=== PATIENT | male | born 1975 | race Caucasian/White ===

== ENCOUNTER 2017-03-26 11:23 | Emergency (ER) | payer OTHER ==
[~2017-03-26] VITALS: Ht 175.3 cm; Wt 70.0 kg
[~2017-03-26 11:23] MED LIST: PANT40TA3 PO; ZOF8 PO
[2017-03-26 11:26] VITALS: Ht 175.3 cm; Wt 70.0 kg
[2017-03-26] MEDS ORDERED: morphine 4 MG/ML VIAL IV STA (11:37)
[2017-03-26] MEDS ORDERED: SOD CHLORIDE 0.9% 1,000 ML IV STA (11:37)
[2017-03-26 11:55] LABS: ADD SCAN DIFF NO
[2017-03-26] MEDS ORDERED: METOCLOPRAMIDE 10 MG INJ IV ONE (12:00)
[2017-03-26] MEDS ORDERED: LORAZEPAM 2 MG INJ IV ONE (12:00)
[2017-03-26 12:01] LABS: BASOPHIL # 0.1 10^3/ul (0.0-0.1); BASOPHILS % 0.4 % (0.0-2.0); EOSINOPHILS % 0.1 % (0.0-7.0); HEMATOCRIT 45.8 % (42.0-52.0); HEMOGLOBIN 15.9 g/dl (14.0-18.0); LYMPHOCYTES # 1.3 10^3/ul (0.8-2.9); LYMPHOCYTES % 7.8 % (15.0-51.0); MEAN CORPUSCULAR HEMOGLOBIN 32.1 pg (29.0-33.0); MEAN CORPUSCULAR HGB CONC 34.7 g/dl (32.0-37.0); MEAN CORPUSCULAR VOLUME 92.3 fl (82.0-101.0); MONOCYTE # 0.8 10^3/ul (0.3-0.9); MONOCYTES % 4.8 % (0.0-11.0); NEUTROPHIL # 13.9 10^3/ul (1.6-7.5); NEUTROPHILS % 86.1 % (39.0-77.0); PLATELET COUNT 265 10^3/UL (140-415); RED BLOOD COUNT 4.96 10^6/ul (4.70-6.10); RED CELL DISTRIBUTION WIDTH 13.4 % (11.5-14.5); WHITE BLOOD COUNT 16.1 10^3/ul (4.8-10.8)
[2017-03-26 12:11] LABS: ALBUMIN 5.2 g/dl (3.3-4.9); POTASSIUM 3.6 mmol/L (3.5-5.1)
[2017-03-26 12:13] LABS: CREATININE 0.93 mg/dl (0.61-1.24)
[2017-03-26 12:14] LABS: ALBUMIN/GLOBULIN RATIO 1.48; BILIRUBIN,INDIRECT 1.1 mg/dl (0-1.1); BILIRUBIN,TOTAL 1.1 mg/dl (0.2-1.3); TOTAL PROTEIN 8.7 g/dl (6.1-8.1)
[2017-03-26 12:15] LABS: CALCIUM 10.1 mg/dl (8.4-10.2)
[2017-03-26] MEDS ORDERED: SUCR1TAB56 PO (12:17)
[2017-03-26] MEDS ORDERED: HYDR2TAB3 PO (12:17)
[2017-03-26] MEDS ORDERED: PANT40TA4 PO (12:17)
[2017-03-26] MEDS ORDERED: HYOS0.1212 SL (12:18)
[2017-03-26] MEDS ORDERED: HYDROmorphONE 1 MG/ML SYG IV STA (12:24)
[2017-03-26] MEDS ORDERED: ONDA4TAB14 PO (13:18)
--- NOTE | 2017-03-26 13:18 | ERD ---
ER Documentation Chief Complaint Date/Time DATE: 03/26/17 TIME: 13:15 Chief Complaint C/O MID CHEST PAIN SINCE TODAY HPI This is a 41-year-old male who presents to the emergency room for evaluation of abdominal pain and cramping. This patient does state he has a history of gastritis and states that he is taking Dilaudid and Zofran for his pain. He states that it is not working and he came to the emergency room for evaluation. He denies any blood in his stool, and states that his pain is centralized in the mid abdomen with no radiation described as a sharp pain. Patient states that he has had pain similar in the past and it was his gastritis which is relieved with fluids and intravenous Dilaudid ROS All systems reviewed and are negative except as per history of present illness. Medications Home Meds Reported Medications Hyoscyamine Sulfate* (Hyoscyamine Sulfate*) 0.125 Mg Tab.subl, 0.125 MG SL Q4H Y for PRN, TAB 03/26/17 Hydromorphone Hcl* (Hydromorphone Hcl*) 2 Mg Tablet, 2 MG PO Q6 Y for PAIN, TAB 03/26/17 Pantoprazole* (Pantoprazole*) 40 Mg Tablet.dr, 40 MG PO AC BREAKFAST, TAB 03/26/17 Sucralfate* (Carafate*) 1 Gm Tab, 1 GM PO AC MEALS AND BEDTIME, TAB 03/26/17 Discontinued Reported Medications Ondansetron Hcl* (Zofran*) 8 Mg Tab, 8 MG PO Q6 Y 01/19/12 Discontinued Scripts Pantoprazole* (Protonix*) 40 Mg Tablet.dr, 40 MG PO DAILY, #30 TAB Prov:LO HUI MD 01/15/16 Allergies Allergies: Coded Allergies: No Known Allergy (Unverified , 01/22/12) PMhx/Soc History of Surgery: Yes Anesthesia Reaction: No Hx Neurological Disorder: No Hx Respiratory Disorders: No Hx Cardiac Disorders: No Hx Psychiatric Problems: No Hx Miscellaneous Medical Probl: Yes (IBS,GASTRITIS) Hx Alcohol Use: No Hx Substance Use: No Hx Tobacco Use: No Smoking Status: Never smoker Physical Exam Vitals Vital Signs Date Time Temp Pulse Resp B/P Pulse Ox O2 Delivery O2 Flow Rate FiO2 03/26/17 11:55 83 17 129/95 100 Room Air 03/26/17 11:26 97.9 55 25 137/75 100 Physical Exam INITIAL VITAL SIGNS: Reviewed by me GENERAL: The patient is well developed, appears uncomfortable HEENT: Dry mucous membranes, pupils equal, round, and reactive to light. EOMI. There is no scleral icterus. NECK: C-spine is soft and supple, there is no meningismus. There is no cervical lymphadenopathy. LUNGS: Clear to auscultation bilaterally. There are no rales, wheezes or rhonchi. HEART: Regular rate and rhythm, no murmurs, clicks, rubs or gallops. ABDOMEN: Epigastric tenderness to palpation, otherwise soft, non-tender, non- distended. There are bowel sounds in all four quadrants. No rebound or guarding. EXTREMITIES: There is no peripheral cyanosis or edema. No focal swelling or erythema. NEUROLOGICAL: The patient moves all four extremities with 5/5 strength. Cranial nerves II - XII are intact. Normal gait. Alert and oriented SKIN: There is no apparent rash or petechiae. HEME/LYMPHATIC: There is no evidence of excessive bruising or lymphedema. PSYCHIATRIC: The patient does not appear anxious or depressed. Result Diagram: 03/26/17 1145 03/26/17 1145 Results 24 hrs Laboratory Tests Test 03/26/17 11:45 White Blood Count 16.110^3/ul Red Blood Count 4.9610^6/ul Hemoglobin 15.9g/dl Hematocrit 45.8% Mean Corpuscular Volume 92.3fl Mean Corpuscular Hemoglobin 32.1pg Mean Corpuscular Hemoglobin Concent 34.7g/dl Red Cell Distribution Width 13.4% Platelet Count 15412^3/UL Mean Platelet Volume 9.0fl Neutrophils % 86.1% Lymphocytes % 7.8% Monocytes % 4.8% Eosinophils % 0.1% Basophils % 0.4% Nucleated Red Blood Cells % 0.0/100WBC Neutrophils # 13.910^3/ul Lymphocytes # 1.310^3/ul Monocytes # 0.810^3/ul Eosinophils # 0.010^3/ul Basophils # 0.110^3/ul Nucleated Red Blood Cells # 0.010^3/ul Sodium Level 146mmol/L Potassium Level 3.6mmol/L Chloride Level 108mmol/L Carbon Dioxide Level 20mmol/L Anion Gap 22 Blood Urea Nitrogen 16mg/dl Creatinine 0.93mg/dl Glucose Level 175mg/dl Calcium Level 10.1mg/dl Total Bilirubin 1.1mg/dl Direct Bilirubin 0.00mg/dl Indirect Bilirubin 1.1mg/dl Aspartate Amino Transf (AST/SGOT) 23IU/L Alanine Aminotransferase (ALT/SGPT) 26IU/L Alkaline Phosphatase 77IU/L Total Protein 8.7g/dl Albumin 5.2g/dl Globulin 3.50g/dl Albumin/Globulin Ratio 1.48 Lipase 31U/L Current Medications Medications (Trade) Dose Ordered Sig/Keren Route PRN Reason Start Time Stop Time Status Last Admin Dose Admin Sodium Chloride (NS) 1,000 ml @ 1,000 mls/hr Q1H STAT IV 03/26/17 11:37 03/26/17 12:36 DC 03/26/17 11:50 Metoclopramide HCl (Reglan) 10 mg ONCE ONCE IV 03/26/17 12:00 03/26/17 12:01 DC 03/26/17 11:48 Lorazepam (Ativan) 1 mg ONCE ONCE IV 03/26/17 12:00 03/26/17 12:01 DC 03/26/17 12:23 Morphine Sulfate (morphine) 4 mg ONCE STAT IV 03/26/17 11:37 03/26/17 11:39 DC 03/26/17 11:49 Hydromorphone HCl (Dilaudid) 1 mg ONCE STAT IV 03/26/17 12:24 03/26/17 12:25 DC 03/26/17 12:34 Procedures/MDM EKG: Rate/Rhythm: [Normal Sinus Rhythm] QRS, ST, T-waves: [No changes consistent w/ acute ischemia] Impression: [No evidence of ischemia or arrhythmia] This 41-year-old male presents to the emergency room for evaluation of abdominal pain. When I evaluated this patient he did appear to be anxious on my examination and was complaining of extreme pain. This patient's vital signs were stable, he is not febrile, not tachycardic. Lab work was obtained and the patient was given Ativan, Reglan, and morphine. The patient was reevaluated and he states that his pain is still present. The patient was given 1 mg of Dilaudid. Upon my second reevaluation this patient is sleeping in bed, states that his pain is completely resolved. He is in no acute distress. This patient does have a leukocytosis on CBC however I feel this is reactive to the vomiting and pain. This patient states that he is passing gas and is passed gas in the emergency room, he also states that his bowel movements been normal. His abdominal exam does not reveal surgical abdomen and I have a low suspicion for obstruction at this time. This patient will be discharged at this time with a prescription for ODT Zofran to take along with his oral Dilaudid. Departure Diagnosis: Primary Impression: Acute gastritis Additional Impressions: Mild dehydration Abdominal pain Condition: Stable BROOKE ESPOSITO DO March 26, 2017 13:18
[2017-03-26 13:26] VITALS: BP 118/82; PULSE 74; RESP 16
== END 2017-03-26 14:19 | disposition home or self-care (01) ==
LOC: E/R 11:23
DX: K29.00 Acute gastritis without bleeding (principal); E86.0 Dehydration; R10.13 Epigastric pain; R40.2142 Coma scale, eyes open, spontaneous, at arrival to emergency department; R40.2362 Coma scale, best motor response, obeys commands, at arrival to emergency department
CPT/HCPCS: 36415; 80053; 83690; 85025; 93005; 96361; 96374; 96375; J1170; J2060; J2270; J2765; J7030; Z7502; Z7610

== ENCOUNTER 2017-06-16 20:20 | Emergency (ER) | payer OTHER ==
[~2017-06-16] VITALS: Ht 172.7 cm; Wt 70.0 kg
[~2017-06-16 20:20] MED LIST changes: +HYDR2TAB3 PO; +HYOS0.1212 SL; +ONDA4TAB14 PO; -PANT40TA3 PO; +PANT40TA4 PO; +SUCR1TAB56 PO; -ZOF8 PO
[2017-06-16 20:25] VITALS: Ht 172.7 cm; Wt 70.0 kg
[2017-06-16] MEDS ORDERED: LIDOCAINE/MYLANTA 40 ML BTL PO STA (20:35)
[2017-06-16] MEDS ORDERED: ONDANSETRON 4 MG INJ IV STA ×2 (20:35→23:26)
[2017-06-16] MEDS ORDERED: FAMOTIDINE 20 MG INJ IV STA (20:35)
[2017-06-16] MEDS ORDERED: HYDROmorphONE 1 MG/ML SYG IV STA ×2 (20:35→23:26)
[2017-06-16] MEDS ORDERED: BELLADONNA/PHENOBARBITAL TAB PO STA (20:35)
[2017-06-16] MEDS ORDERED: SOD CHLORIDE 0.9% 1,000 ML IV STA (20:35)
[2017-06-16 20:56] LABS: BASOPHIL # 0.1 10^3/ul (0.0-0.1); BASOPHILS % 0.6 % (0.0-2.0); EOSINOPHILS % 0.3 % (0.0-7.0); HEMATOCRIT 45.6 % (42.0-52.0); HEMOGLOBIN 15.4 g/dl (14.0-18.0); LYMPHOCYTES # 2.2 10^3/ul (0.8-2.9); LYMPHOCYTES % 18.8 % (15.0-51.0); MEAN CORPUSCULAR HEMOGLOBIN 31.1 pg (29.0-33.0); MEAN CORPUSCULAR HGB CONC 33.8 g/dl (32.0-37.0); MEAN CORPUSCULAR VOLUME 92.1 fl (82.0-101.0); MEAN PLATELET VOLUME 8.9 fl (7.4-10.4); MONOCYTE # 0.9 10^3/ul (0.3-0.9); MONOCYTES % 7.6 % (0.0-11.0); NEUTROPHIL # 8.5 10^3/ul (1.6-7.5); NEUTROPHILS % 72.3 % (39.0-77.0); PLATELET COUNT 273 10^3/UL (140-415); RED BLOOD COUNT 4.95 10^6/ul (4.70-6.10); WHITE BLOOD COUNT 11.7 10^3/ul (4.8-10.8)
[2017-06-16 21:19] LABS: INR 0.97; PROTIME 12.9 Sec (12.2-14.2)
[2017-06-16 21:25] LABS: ALANINE AMINOTRANSFERASE 25 IU/L (13-69); ALBUMIN/GLOBULIN RATIO 1.47; ALKALINE PHOSPHATASE 66 IU/L (42-121); AMYLASE 79 U/L (11-123); ANION GAP 22 (8-16); ASPARTATE AMINO TRANSFERASE 17 IU/L (15-46); BILIRUBIN,INDIRECT 0.8 mg/dl (0-1.1); BILIRUBIN,TOTAL 0.8 mg/dl (0.2-1.3); BLOOD UREA NITROGEN 17 mg/dl (7-20); CALCIUM 10.1 mg/dl (8.4-10.2); CARBON DIOXIDE 23 mmol/L (21-31); CHLORIDE 104 mmol/L (97-110); CREATININE 0.95 mg/dl (0.61-1.24); GLUCOSE 186 mg/dl (70-220); POTASSIUM 3.6 mmol/L (3.5-5.1); SODIUM 145 mmol/L (135-144); TOTAL PROTEIN 8.4 g/dl (6.1-8.1)
[2017-06-16] MEDS ORDERED: HYDR2TAB3 PO (21:28)
[2017-06-16] MEDS ORDERED: HYOS0.1212 SL (21:30)
[2017-06-16 21:36] LABS: TROPONIN-I < 0.012 ng/ml (0.00-0.12)
[2017-06-16] MEDS ORDERED: LORAZEPAM 2 MG INJ IV ONE (22:00)
[2017-06-16] MEDS ORDERED: IOHEXOL 300MG/ML 150 ML BTL ONE (22:12)
[2017-06-16] MEDS ORDERED: SOD CHLORIDE 0.9% 100 ML ONE (22:12)
--- NOTE | 2017-06-16 23:08 | RADRPT ---
PROCEDURE: CT ABDOMEN AND PELVIS WITH CONTRAST: CLINICAL INDICATION: 42 years of age, male, epigastric pain. COMPARISON: Report of CT abdomen pelvis January 21, 2012 of the TECHNIQUE: CT of the abdomen, and pelvis was performed following administration of 90 mL IV Omnip aque-300. Oral contrast was not administered prior to the examination. Coronal and sagittal reformatted images were obtained from the axial source images. Images were rev iewed on a high-resolution PACS workstation. One or more of the following dose reduction techniques were used: Automated exposure control. Adjustment of the mA and/or kV according to patient size. Use of iterative reconstruction technique. Dose information: Based on a 32 cm phantom, the estimated radiation dose (CTDI vol mGy for each seri es in this exam is 8.7 . The estimated cumulative dose (DLP mGy-cm) is 475 . FINDINGS: There is some mild degradation of image quality due to motion artifact. The study remains diagnosti c. LUNG BASES: Normal. ABDOMEN/PELVIS: Liver: Normal. Portal veins, splenic vein and SMV are patent. Hepatic veins are patent. Gallbladder: Normal. Bile ducts: No intrahepatic or extrahepatic biliary duct dilatation. Spleen: Normal. Pancreas: Normal. Adrenal glands: Normal. Kidneys and ureters: Normal. Aorta and IVC: Patent. Lymph nodes: Normal. Gastrointestinal tract: Scattered colonic diverticula without diverticulitis. Bowel loops are decomp ressed. Appendix: Normal Bladder: Normal. Pelvic Organs: Normal. Peritoneal cavity: No free fluid or free intraperitoneal air. Abdominal wall: Normal. BONES: Musculoskeletal: No suspicious bone lesions. IMPRESSION: 1. Mild colonic diverticulosis without diverticulitis. Cause for epigastric pain is not evident. 2. Please note that CT is insensitive in diagnosing gallstones and if gallstones are a clinical conc jessica suggest right upper quadrant ultrasound. RPTAT: HCTS Physician Jimbo Date Time Electronically viewed and signed by Physician Jimbo on 06/16/2017 23:08 /
--- NOTE | 2017-06-16 23:12 | ERD ---
ER Documentation Chief Complaint Date/Time DATE: 06/16/17 TIME: 23:09 Chief Complaint epigastric pain w/ active vomiting x 2 days HPI This is a 42-year-old male with a known history of IBS and gastroparesis that presents to the emergency department complaining of a sudden onset of severe abdominal pain at 10 AM, 12 hours prior to arrival. He indicates that over the past 2 days he has had intermittent epigastric pain upon awakening this morning the pain worsened to 10 out of 10 in intensity became diffuse. He states he has had multiple episodes of nonbloody nonbilious emesis since the onset of the abdominal pain over the past 2 days. The pain does not radiate to the back. Indicates he has had multiple similar episodes of this pain in the past. He denies any frequency urgency or dysuria. He denies a headache. He has had no fevers or shaking or chills. He denies any alcohol or illicit drug use. He states there is no alleviating or exacerbating factors to the pain. ROS All systems reviewed and are negative except as per history of present illness. Medications Home Meds Active Scripts Ondansetron (Ondansetron Odt) 4 Mg Tab.rapdis, 4 MG PO Q6H Y for NAUSEA AND/OR VOMITING, #20 TAB Prov:KIERAN VÁSQUEZ 06/16/17 Reported Medications Hyoscyamine Sulfate* (Hyoscyamine Sulfate*) 0.125 Mg Tab.subl, 0.125 MG SL Q4H, TAB 06/16/17 Hydromorphone Hcl* (Hydromorphone Hcl*) 2 Mg Tablet, 2 MG PO Q8H Y for PAIN, TAB 06/16/17 Pantoprazole* (Pantoprazole*) 40 Mg Tablet.dr, 40 MG PO AC BREAKFAST, TAB 03/26/17 Sucralfate* (Carafate*) 1 Gm Tab, 1 GM PO AC MEALS AND BEDTIME, TAB 03/26/17 Discontinued Reported Medications Hyoscyamine Sulfate* (Hyoscyamine Sulfate*) 0.125 Mg Tab.subl, 0.125 MG SL Q4H Y for PRN, TAB 03/26/17 Hydromorphone Hcl* (Hydromorphone Hcl*) 2 Mg Tablet, 2 MG PO Q6 Y for PAIN, TAB 03/26/17 Discontinued Scripts Ondansetron (Ondansetron Odt) 4 Mg Tab.rapdis, 4 MG PO Q6H Y for NAUSEA AND/OR VOMITING for 5 Days, TAB Prov:BROOKE ESPOSITO DO 03/26/17 Allergies Allergies: Coded Allergies: No Known Allergy (Unverified , 06/16/17) PMhx/Soc History of Surgery: Yes Anesthesia Reaction: No Hx Neurological Disorder: No Hx Respiratory Disorders: No Hx Cardiac Disorders: No Hx Psychiatric Problems: No Hx Miscellaneous Medical Probl: Yes (IBS,GASTRITIS) Hx Alcohol Use: No Hx Substance Use: No Hx Tobacco Use: No Smoking Status: Never smoker Physical Exam Vitals Vital Signs Date Time Temp Pulse Resp B/P Pulse Ox O2 Delivery O2 Flow Rate FiO2 06/16/17 20:25 98.3 91 20 153/69 98 Physical Exam Constitutional:Well-developed. Well-nourished. Patient with a ring around on a stretcher moaning unable to find a comfortable position complaining of severe pain. He was very tearful peer HEENT:Normocephalic. Atraumatic.Pupils were equal round reactive to light. Dry mucous membranes.No tonsillar exudates. Neck: No nuchal rigidity. No lymphadenopathy. No posterior cervical spine tenderness or step-offs. Respiratory: Not using accessory muscles of respiration.Lungs were clear to auscultation bilaterally. No rhonchi. No rales. No wheezing. Cardiovascular: Regular rate regular rhythm.No murmurs. No rubs were appreciated.S1, S2 normal. Distal pulses are palpable 2+ bilaterally. GI: Abdomen was soft. Tenderness in the epigastric region and left lower quadrant. No tenderness over McBurney's point and psoas sign negative. Obturator sign negative. Negative Tarango sign Non Distended. No pulsatile abdominal masses or bruits. No rebound. No guarding. Bowel sounds were present and normal. Muscle skeletal: Full range of motion of both the upper and lower extremities bilaterally.Normal muscle tone.No assymetrical calf tenderness or swelling. Skin: No petechia, no purpura. No lesions on the palms or the soles of the feet. No maculopapular rash. NEURO: Patient was alert, awake, orientated x3.No facial droop. Gait observed and normal with no ataxia.Speech had regular rate and rhythm. No focal neurological deficits. Result Diagram: 06/16/17204106/16/172041 Results 24 hrs Laboratory Tests Test 06/16/17 20:42 White Blood Count 11.710^3/ul Red Blood Count 4.9510^6/ul Hemoglobin 15.4g/dl Hematocrit 45.6% Mean Corpuscular Volume 92.1fl Mean Corpuscular Hemoglobin 31.1pg Mean Corpuscular Hemoglobin Concent 33.8g/dl Red Cell Distribution Width 13.0% Platelet Count 53617^3/UL Mean Platelet Volume 8.9fl Neutrophils % 72.3% Lymphocytes % 18.8% Monocytes % 7.6% Eosinophils % 0.3% Basophils % 0.6% Nucleated Red Blood Cells % 0.0/100WBC Neutrophils # 8.510^3/ul Lymphocytes # 2.210^3/ul Monocytes # 0.910^3/ul Eosinophils # 0.010^3/ul Basophils # 0.110^3/ul Nucleated Red Blood Cells # 0.010^3/ul Prothrombin Time 12.9Sec Prothrombin Time Ratio 1.0 INR International Normalized Ratio 0.97 Activated Partial Thromboplast Time 26.0Sec Sodium Level 145mmol/L Potassium Level 3.6mmol/L Chloride Level 104mmol/L Carbon Dioxide Level 23mmol/L Anion Gap 22 Blood Urea Nitrogen 17mg/dl Creatinine 0.95mg/dl Glucose Level 186mg/dl Calcium Level 10.1mg/dl Total Bilirubin 0.8mg/dl Direct Bilirubin 0.00mg/dl Indirect Bilirubin 0.8mg/dl Aspartate Amino Transf (AST/SGOT) 17IU/L Alanine Aminotransferase (ALT/SGPT) 25IU/L Alkaline Phosphatase 66IU/L Troponin I < 0.012ng/ml Total Protein 8.4g/dl Albumin 5.0g/dl Globulin 3.40g/dl Albumin/Globulin Ratio 1.47 Amylase Level 79U/L Lipase 143U/L Current Medications Medications (Trade) Dose Ordered Sig/Keren Route PRN Reason Start Time Stop Time Status Last Admin Dose Admin Sodium Chloride (NS) 1,000 ml @ 1,000 mls/hr Q1H STAT IV 06/16/17 20:35 06/16/17 21:34 DC 06/16/17 20:41 Hydromorphone HCl (Dilaudid) 1 mg ONCE STAT IV 06/16/17 20:35 06/16/17 20:38 DC 06/16/17 20:41 Ondansetron HCl (Zofran Inj) 4 mg ONCE STAT IV 06/16/17 20:35 06/16/17 20:38 DC 06/16/17 20:40 Famotidine (Pepcid Iv) 20 mg ONCE STAT IV 06/16/17 20:35 06/16/17 20:39 DC 06/16/17 21:13 Miscellaneous Medication (Gi Cocktail (2)) 40 ml ONCE STAT PO 06/16/17 20:35 06/16/17 20:39 DC 06/16/17 21:13 Belladonna/ Phenobarbital () 2 tab ONCE STAT PO 06/16/17 20:35 06/16/17 20:39 DC 06/16/17 21:13 Lorazepam (Ativan) 1 mg ONCE ONCE IV 06/16/17 22:00 06/16/17 22:01 DC 06/16/17 21:54 IV Flush 10 ml 10 ml STK-MED ONCE .ROUTE 06/16/17 22:12 06/16/17 22:13 DC 06/16/17 22:46 Sodium Chloride (NS) 100 ml @ ud STK-MED ONCE .ROUTE 06/16/17 22:12 06/16/17 22:13 DC 06/16/17 22:47 Iohexol (Omnipaque 300mg/ ml) 150 ml STK-MED ONCE .ROUTE 06/16/17 22:12 06/16/17 22:13 DC 06/16/17 22:47 Procedures/MDM The patient presented to the emergency department with epigastric pain. My differential diagnosis included but was not limited to abdominal aortic aneurysm , choledocholithiasis, gallstone ileus, renal colic, pyelonephritis, pancreatitis, peptic ulcer disease, atypical myocardical infarction, mesenteric ischemia, GERD, pulmonary infarction. The patient was placed on a ekg monitor tech, continuous pulse oximetry and IV access was established by nursing staff. Patient immediately received IV Pepcid Zofran as well as intravenous Dilaudid An EKG was obtained to rule out myocardial ischemia. There was no elevation of LFTs to suggest ductal obstruction, cholangitis, cholecystiitis or hepatitis. Given that the urinalysis did not show bilirubinuria, my suspicion for common duct obstruction or hepatitis was low. The patient had mild leukocytosis with no left shift likely secondary to an acute stress reaction. Serum sodium was slightly elevated which was thought to be secondary to clinical dehydration. The patient received IV fluids to improve the hypernatremia. Also obtained a CT scan of the abdomen due to the patient's severe abdominal discomfort. There is no signs of obstructive uropathy, appendicitis or small bowel obstruction. Patient had diverticulosis without diverticulitis. The patient still was complaining of discomfort and appeared to be very agitated. He received IV Ativan. His symptoms had significantly improved. He also received IV Toradol. At this time I felt the patient be safely discharged home as he was able to tolerate oral intake. The patient was discharged home in fair condition. They were instructed to return to the emergency department at any time if there was any worsening of their condition. The patient stated they would follow up with their PCP in the next 24-48 hours to initiate a suitable medication regimen under the care of their PCP as well as to allow their PCP to monitor any drug reactions. The patient was discharged home with prescriptions after they gave informed consent to the new medication. They were also fully informed by myself on the adverse effects and adverse drug interactions in order to provide adequate safeguards to prevent possible adverse reactions to medications. Patient was given a prescription of Zofran to take if needed for antiemetic control. Departure Diagnosis: Primary Impression: Epigastric pain Additional Impressions: Vomiting Vomiting type: cyclical vomiting Vomiting Intractability: non-intractable Nausea presence: with nausea Qualified Code: G43.A0 - Non-intractable cyclical vomiting with nausea Diverticulosis Diverticulosis site: diverticulosis of large intestine Diverticulosis bleeding: diverticulosis without bleeding Qualified Code: K57.30 - Diverticulosis of large intestine without hemorrhage Condition: Fair KIERAN VÁSQUEZ Jun 16, 2017 23:12
[2017-06-16] MEDS ORDERED: ONDA4TAB14 PO (23:15)
[2017-06-17 00:05] VITALS: BP 116/61; PULSE 94; RESP 20; TEMP 98.5
== END 2017-06-17 00:10 | disposition home or self-care (01) ==
LOC: E/R 20:20
DX: R10.13 Epigastric pain (principal); G43.A0 Cyclical vomiting, in migraine, not intractable; K57.30 Diverticulosis of large intestine without perforation or abscess without bleeding
CPT/HCPCS: 74177; 80053; 82150; 83690; 84484; 85025; 85610; 85730; 93005; 96374; 96375; 96376; J1170; J2060; J2405; J7030; Q9967; Z7502; Z7610

== ENCOUNTER 2018-12-24 22:38 | Emergency (ER) | payer OTHER ==
[~2018-12-24] VITALS: Ht 165.1 cm; Wt 160.0 kg
[~2018-12-24 22:38] MED LIST changes: -HYOS0.1212 SL; +HYOS0.1297 SL
[2018-12-24 22:46] VITALS: Ht 165.1 cm; Wt 160.0 kg
[2018-12-24] MEDS ORDERED: FAMOTIDINE 20 MG INJ IV STA (23:47)
[2018-12-24] MEDS ORDERED: SOD CHLORIDE 0.9% 1,000 ML IV STA (23:47)
[2018-12-24] MEDS ORDERED: METOCLOPRAMIDE 10 MG INJ IV STA (23:47)
[2018-12-25] MEDS ORDERED: DIPHENHYDRAMINE 50 MG INJ IV ONE
--- NOTE | 2018-12-25 00:06 | ERD ---
ER Documentation Chief Complaint Chief Complaint abdominal pain/vomiting x 5 days. hx of ibs HPI Is a 43-year-old male with a history of irritable bowel syndrome who presents for recurrent abdominal pain, abdominal pain is described as diffuse. Patient denies chest pain or shortness of breath, pain is described as burning, it is i ntermittent, there are no alleviating or aggravating factors, he does endorse vomiting. He denies fever. He is followed by GI doctor. ROS All systems reviewed and are negative except as per history of present illness. Medications Home Meds Active Scripts Ondansetron (Ondansetron Odt) 4 Mg Tab.rapdis, 4 MG PO Q6H PRN for NAUSEA AND/OR VOMITING, #20 TAB Prov:KIERAN VÁSQUEZ MD 06/16/17 Reported Medications Lorazepam* (Lorazepam*) 1 Mg Tablet, 1 MG PO BID PRN for ANXIETY, #30 TAB 12/25/18 Metoclopramide Hcl* (Metoclopramide Hcl*) 10 Mg Tablet, 10 MG PO AC MEALS for 4 Days, #15 12/25/18 Dicyclomine HCl (Dicyclomine HCl) 20 Mg Tablet, 20 MG PO TID 12/25/18 Hyoscyamine Sulfate* (Hyoscyamine Sulfate*) 0.125 Mg Tab.subl, 0.125 MG SL Q4H, TAB 06/16/17 Pantoprazole* (Pantoprazole*) 40 Mg Tablet.dr, 40 MG PO AC BREAKFAST, TAB 03/26/17 Sucralfate* (Carafate*) 1 Gm Tab, 1 GM PO AC MEALS AND BEDTIME, TAB 03/26/17 Discontinued Reported Medications Metoclopramide* (Reglan*) 10 Mg Tablet, 10 MG PO AC MEALS, TAB 12/25/18 Hydromorphone Hcl* (Hydromorphone Hcl*) 2 Mg Tablet, 2 MG PO Q8H PRN for PAIN, TAB 06/16/17 Allergies Allergies: Coded Allergies: No Known Allergy (Unverified , 12/25/18) PMhx/Soc History of Surgery: Yes Anesthesia Reaction: No Hx Neurological Disorder: No Hx Respiratory Disorders: No Hx Cardiac Disorders: No Hx Psychiatric Problems: No Hx Miscellaneous Medical Probl: Yes (IBS,GASTRITIS) Hx Alcohol Use: No Hx Substance Use: No Hx Tobacco Use: No Physical Exam Vitals Vital Signs Date Temp Pulse Resp B/P (MAP) Pulse Ox O2 O2 Flow FiO2 Time Delivery Rate 12/25/18 88 18 129/84 97 Room Air 01:24 (99) 12/24/18 97.8 122 18 140/75 98 22:46 (96) Physical Exam Const: No acute distress Head: Atraumatic Eyes: Normal Conjunctiva ENT: Normal External Ears, Nose and Mouth. Neck: Full range of motion. No meningismus. Resp: Clear to auscultation bilaterally Cardio: Regular rate and rhythm, no murmurs Abd: Soft, non tender, non distended, no rebound or guarding, no McBurney's point tenderness, negative Tarango sign.. Normal bowel sounds Skin: No petechiae or rashes Back: No midline or flank tenderness Ext: No cyanosis, or edema Neur: Awake and alert Psych: Normal Mood and Affect Result Diagram: 12/24/18 2348 12/24/18 2348 Results 24 hrs Laboratory Tests Test 12/24/18 23:48 12/25/18 02:01 White Blood Count 9.6 10^3/ul Red Blood Count 5.14 10^6/ul Hemoglobin 16.3 g/dl Hematocrit 48.3 % Mean Corpuscular Volume 94.0 fl Mean Corpuscular Hemoglobin 31.7 pg Mean Corpuscular Hemoglobin Concent 33.7 g/dl Red Cell Distribution Width 13.0 % Platelet Count 249 10^3/UL Mean Platelet Volume 8.5 fl Immature Granulocytes % 0.500 % Neutrophils % 67.6 % Lymphocytes % 21.5 % Monocytes % 9.3 % Eosinophils % 0.6 % Basophils % 0.5 % Nucleated Red Blood Cells % 0.0 /100WBC Immature Granulocytes # 0.050 10^3/ul Neutrophils # 6.5 10^3/ul Lymphocytes # 2.1 10^3/ul Monocytes # 0.9 10^3/ul Eosinophils # 0.1 10^3/ul Basophils # 0.1 10^3/ul Nucleated Red Blood Cells # 0.0 10^3/ul Sodium Level 140 mmol/L Potassium Level 3.7 mmol/L Chloride Level 101 mmol/L Carbon Dioxide Level 26 mmol/L Anion Gap 13 Blood Urea Nitrogen 27 mg/dl Creatinine 0.92 mg/dl Est Glomerular Filtrat Rate mL/min > 60 mL/min Glucose Level 160 mg/dl Calcium Level 10.3 mg/dl Total Bilirubin 1.3 mg/dl Direct Bilirubin 0.00 mg/dl Indirect Bilirubin 1.3 mg/dl Aspartate Amino Transf (AST/SGOT) 17 IU/L Alanine Aminotransferase (ALT/SGPT) 8 IU/L Alkaline Phosphatase 61 IU/L Troponin I < 0.012 ng/ml Total Protein 8.8 g/dl Albumin 5.0 g/dl Globulin 3.80 g/dl Albumin/Globulin Ratio 1.31 Lipase 51 U/L Bedside Urine pH (LAB) 6.0 Bedside Urine Protein (LAB) 2+ Bedside Urine Glucose (UA) Negative Bedside Urine Ketones (LAB) Trace Bedside Urine Blood Negative Bedside Urine Nitrite (LAB) Negative Bedside Urine Leukocyte Esterase (L Negative Current Medications Medications Dose Sig/Keren Start Time Status Last (Trade) Ordered Route PRN Stop Time Admin Dose Reason Admin Sodium 1,000 ml @ Q1H STAT 12/24/18 DC 12/24/18 Chloride 1,000 mls/hr IV 23:47 23:56 12/25/18 00:46 10 mg ONCE STAT 12/24/18 DC 12/24/18 Metoclopramid IV 23:47 23:56 e HCl 12/24/18 23:50 (Reglan) Famotidine 20 mg ONCE STAT 12/24/18 DC 12/24/18 (Pepcid Iv) IV 23:47 23:56 12/24/18 23:50 25 mg ONCE ONCE 12/25/18 DC 12/24/18 Diphenhydrami IV 00:00 23:56 ne HCl 12/25/18 00:01 (Benadryl) 1 mg ONCE STAT 12/25/18 DC 12/25/18 Hydromorphone IV 00:24 00:28 HCl 12/25/18 00:25 (Dilaudid) Diatrizoate 120 ml ONCE ONCE 12/25/18 DC Meglum/ PO 02:30 Diatrizoate 12/25/18 02:31 Sod (Gastrografin 66-10 Solution) 1 mg ONCE STAT 12/25/18 Cancel Hydromorphone IV 02:27 HCl 12/25/18 02:28 (Dilaudid) 1 mg ONCE ONCE 12/25/18 DC 12/25/18 Hydromorphone IV 02:31 02:36 HCl 12/25/18 02:32 (Dilaudid) Procedures/MDM This is a 43-year-old male presents for evaluation of abdominal pain. Exam reveals nontoxic afebrile male, no peritoneal signs are noted on abdominal exam, CT abdomen pelvis did not show any acute intra-abdominal pathology. There was thickening of the terminal ileum, which I discussed with the reading radiologist, who discussed consideration of a small bowel follow-through, to evaluate for inflammatory bowel disease, such as Crohn's or ulcerative colitis. I then discussed this with the patient, who stated that he has had the study before and additionally his GI doctor has worked him up for inflammatory bowel disease, and this workup has been negative, thus he deferred further study. Clinically I do not suspect a Crohn's or ulcerative colitis flare, for the reasons above. Patient's pain improved in the ED, on serial abdominal exams he showed no worsening, and he was stable for discharge home, at discharge she was in no acute distress. EKG: Rate/Rhythm: Normal Sinus Rhythm QRS, ST, T-waves: No changes consistent w/ acute ischemia Impression: No evidence of ischemia or arrhythmia JOSEMANUEL BARCENAS MD Dec 25, 2018 00:06
[2018-12-25] MEDS ORDERED: HYDROmorphONE 2 MG/ML SYG IV STA ×2 (00:24→02:27)
[2018-12-25] MEDS ORDERED: METO10TA3 PO (02:18)
[2018-12-25] MEDS ORDERED: DIC20 PO (02:18)
[2018-12-25] MEDS ORDERED: METO10TA92 PO (02:24)
[2018-12-25] MEDS ORDERED: LORA1TAB PO (02:26)
[2018-12-25] MEDS ORDERED: DIATR MEGLU/DIATRIZOATE SODIUM 120 ML BTL PO ONE (02:30)
[2018-12-25] MEDS ORDERED: HYDROmorphONE 1 MG/ML SYG IV ONE (02:31)
[2018-12-25 03:16] VITALS: BP 111/84; PULSE 88; RESP 21
== END 2018-12-25 03:20 | disposition home or self-care (01) ==
LOC: E/R 22:38
DX: R10.84 Generalized abdominal pain (principal); R11.10 Vomiting, unspecified
CPT/HCPCS: 36415; 74176; 80053; 81003; 83690; 84484; 85025; 93005; 96374; 96375; 96376; J1170; J1200; J2765; J7030; Z7502; Z7610

== ENCOUNTER 2018-12-29 22:19 | Inpatient (IN) | payer OTHER ==
[~2018-12-29] VITALS: Ht 165.1 cm; Wt 66.0 kg
[~2018-12-29 22:19] MED LIST changes: +DIC20 PO; -HYDR2TAB3 PO; +LORA1TAB PO; +METO10TA3 PO
[2018-12-29] MEDS ORDERED: OCTREOTIDE 50 MCG in SOD CHLORIDE 0.9% 25 ML IVPB STA (22:34)
[2018-12-29] MEDS ORDERED: CEFTRIAXONE 1 GM/50 ML (PMX) 50 ML IVPB STA (22:34)
[2018-12-29] MEDS ORDERED: ONDANSETRON INJ 8 MG in DEXTROSE 5% 50 ML IVPB STA (22:34)
[2018-12-29] MEDS ORDERED: OCTREOTIDE 500 MCG in SOD CHLORIDE 0.9% 49 ML IV STA (22:34)
[2018-12-29] MEDS ORDERED: PANTOPRAZOLE IV 80 MG in SOD CHLORIDE 0.9% 100 ML IVPB STA (22:34)
[2018-12-29] MEDS ORDERED: SOD CHLORIDE 0.9% 1,000 ML IV STA (22:34)
[2018-12-29] MEDS ORDERED: PANTOPRAZOLE IV 80 MG in SOD CHLORIDE 0.9% 100 ML IV STA (22:34)
[2018-12-29] MEDS ORDERED: ONDANSETRON 4 MG INJ IV STA (22:40)
[2018-12-29] MEDS ORDERED: morphine 4 MG/ML VIAL IV STA (22:40)
[2018-12-30] VITALS (15 sets, daily range): BP systolic 103–125; BP diastolic 65–86; PULSE 72–93; RESP 10–23; Ht 165.1 cm; Wt 66.0 kg
--- NOTE | 2018-12-30 00:37 | ERD ---
ER Documentation Chief Complaint Chief Complaint AP, N/V X 12 HRS HPI 43-year-old male with complaints of abdominal pain nausea vomiting for the past 12 hours. Patient has documented history of erosive gastritis. He said he had coffee-ground emesis x3 today approximately 4-5 tablespoons each time. No fevers or chills. Pain is mild to moderate, epigastric in location with no exacerbating alleviating factors. It is been going on for the past 12-14 hours per the patient ROS All systems reviewed and are negative except as per history of present illness. Medications Home Meds Active Scripts Ondansetron (Ondansetron Odt) 4 Mg Tab.rapdis, 4 MG PO Q6H PRN for NAUSEA AND/OR VOMITING, #20 TAB Prov:KIERAN VÁSQUEZ MD 06/16/17 Reported Medications Lorazepam* (Lorazepam*) 1 Mg Tablet, 1 MG PO BID PRN for ANXIETY, #30 TAB 12/25/18 Metoclopramide Hcl* (Metoclopramide Hcl*) 10 Mg Tablet, 10 MG PO AC MEALS for 4 Days, #15 12/25/18 Dicyclomine HCl (Dicyclomine HCl) 20 Mg Tablet, 20 MG PO TID 12/25/18 Hyoscyamine Sulfate* (Hyoscyamine Sulfate*) 0.125 Mg Tab.subl, 0.125 MG SL Q4H, TAB 06/16/17 Pantoprazole* (Pantoprazole*) 40 Mg Tablet.dr, 40 MG PO AC BREAKFAST, TAB 03/26/17 Sucralfate* (Carafate*) 1 Gm Tab, 1 GM PO AC MEALS AND BEDTIME, TAB 03/26/17 Discontinued Reported Medications Metoclopramide* (Reglan*) 10 Mg Tablet, 10 MG PO AC MEALS, TAB 12/25/18 Hydromorphone Hcl* (Hydromorphone Hcl*) 2 Mg Tablet, 2 MG PO Q8H PRN for PAIN, TAB 06/16/17 Allergies Allergies: Coded Allergies: No Known Allergy (Unverified , 12/25/18) PMhx/Soc Medical and Surgical Hx: pt denies Surgical Hx History of Surgery: No Anesthesia Reaction: No Hx Neurological Disorder: No Hx Respiratory Disorders: No Hx Cardiac Disorders: No Hx Psychiatric Problems: No Hx Miscellaneous Medical Probl: Yes (IBS,GASTRITIS) Hx Alcohol Use: No Hx Substance Use: No Hx Tobacco Use: No Smoking Status: Former smoker Physical Exam Vitals Vital Signs Date Temp Pulse Resp B/P (MAP) Pulse Ox O2 O2 Flow FiO2 Time Delivery Rate 12/29/18 93 16 122/92 100 Room Air 23:45 (102) 12/29/18 97.7 108 14 148/99 99 22:29 (115) Physical Exam Const: No acute distress Head: Atraumatic Eyes: Normal Conjunctiva ENT: Normal External Ears, Nose and Mouth. Neck: Full range of motion. No meningismus. Resp: Clear to auscultation bilaterally Cardio: Regular rate and rhythm, no murmurs Abd: Soft, non tender, non distended. Normal bowel sounds Skin: No petechiae or rashes Back: No midline or flank tenderness Ext: No cyanosis, or edema Neur: Awake and alert Psych: Normal Mood and Affect Result Diagram: 12/29/18224912/29/182249 Results 24 hrs Laboratory Tests Test 12/29/18 22:50 White Blood Count 13.2 10^3/ul Red Blood Count 5.19 10^6/ul Hemoglobin 16.7 g/dl Hematocrit 47.1 % Mean Corpuscular Volume 90.8 fl Mean Corpuscular Hemoglobin 32.2 pg Mean Corpuscular Hemoglobin Concent 35.5 g/dl Red Cell Distribution Width 12.0 % Platelet Count 305 10^3/UL Mean Platelet Volume 9.1 fl Immature Granulocytes % 0.600 % Neutrophils % 75.1 % Lymphocytes % 16.0 % Monocytes % 7.7 % Eosinophils % 0.1 % Basophils % 0.5 % Nucleated Red Blood Cells % 0.0 /100WBC Immature Granulocytes # 0.080 10^3/ul Neutrophils # 9.9 10^3/ul Lymphocytes # 2.1 10^3/ul Monocytes # 1.0 10^3/ul Eosinophils # 0.0 10^3/ul Basophils # 0.1 10^3/ul Nucleated Red Blood Cells # 0.0 10^3/ul Prothrombin Time 12.9 Sec Prothrombin Time Ratio 1.0 INR International Normalized Ratio 0.96 Activated Partial Thromboplast Time 28.0 Sec Sodium Level 140 mmol/L Potassium Level 3.6 mmol/L Chloride Level 97 mmol/L Carbon Dioxide Level 23 mmol/L Anion Gap 20 Blood Urea Nitrogen 17 mg/dl Creatinine 1.12 mg/dl Est Glomerular Filtrat Rate mL/min > 60 mL/min Glucose Level 180 mg/dl Calcium Level 10.5 mg/dl Total Bilirubin 0.8 mg/dl Direct Bilirubin 0.00 mg/dl Indirect Bilirubin 0.8 mg/dl Aspartate Amino Transf (AST/SGOT) 21 IU/L Alanine Aminotransferase (ALT/SGPT) 14 IU/L Alkaline Phosphatase 72 IU/L Troponin I < 0.012 ng/ml Total Protein 9.1 g/dl Albumin 5.1 g/dl Globulin 4.00 g/dl Albumin/Globulin Ratio 1.27 Current Medications Medications Dose Sig/Keren Start Time Status Last (Trade) Ordered Route PRN Stop Time Admin Dose Reason Admin Sodium 1,000 ml @ Q1H STAT 12/29/18 DC 12/29/18 Chloride 1,000 mls/hr IV 22:34 22:56 12/29/18 23:33 Pantoprazole 100 ml @ ONCE STAT 12/29/18 DC 12/29/18 80 mg/Sodium 400 mls/hr IVPB 22:34 23:37 Chloride 12/29/18 22:48 Pantoprazole 100 ml @ ONCE STAT 12/29/18 12/29/18 80 mg/Sodium 10 mls/hr IV 22:34 22:34 Chloride 12/30/18 08:33 Octreotide 26 ml @ Q16M STAT 12/29/18 DC 12/29/18 Acetate 50 100 mls/hr IVPB 22:34 23:37 mcg/ Sodium 12/29/18 22:49 Chloride Octreotide 50 ml @ 5 ONCE STAT 12/29/18 12/29/18 Acetate 500 mls/hr IV 22:34 23:46 mcg/ Sodium 12/30/18 08:33 Chloride Ondansetron 54 ml @ ONCE STAT 12/29/18 DC 12/29/18 HCl 8 200 mls/hr IVPB 22:34 23:37 mg/Dextrose 12/29/18 22:50 Ceftriaxone 50 ml @ ONCE STAT 12/29/18 DC 12/29/18 Sodium 100 mls/hr IVPB 22:34 22:56 12/29/18 23:03 Morphine 4 mg ONCE STAT 12/29/18 DC 12/29/18 Sulfate IV 22:40 22:55 (morphine) 12/29/18 22:41 Ondansetron 4 mg ONCE STAT 12/29/18 DC 12/29/18 HCl (Zofran IV 22:40 22:55 Inj) 12/29/18 22:41 Procedures/MDM Emergency department course: Patient seen and evaluated. Intravenous access times. Fluids administered. Given pain medication. Started on Rocephin and blood culture sent off. Was started on octreotide drip and a Protonix drip. Patient refused NG tube placement. Medical decision makin-year-old male with upper GI bleed. This is likely a reactivation of his erosive gastritis, however given the amount and the frequency of the coffee-ground emesis the octreotide drip and Protonix drip were started. Patient's previous admitted to Dr. Balderas. Dr. Balderas on-call physician Dr. Rdz' accepts the patient to service Departure Diagnosis: Primary Impression: Hematemesis Nausea presence: unspecified Qualified Codes: K92.0 - Hematemesis Condition: Serious ALYSIA AGARWAL Dec 30, 2018 00:37
[2018-12-30] MEDS ORDERED: HYDROmorphONE 0.5 MG/0.5 ML SYG IV STA (00:47)
[2018-12-30] MEDS: PANTOPRAZOLE IV 80 MG in SOD CHLORIDE 0.9% 100 ML IV SCH ×4 (02:43→20:59)
[2018-12-30] MEDS: SOD CHLORIDE 0.9% 1,000 ML IV SCH ×3 (02:44→20:59)
[2018-12-30] MEDS: HYDROmorphONE 1 MG/ML SYG IV PRN ×5 (03:03→21:04)
[2018-12-30] MEDS: ONDANSETRON 4 MG INJ IV PRN (06:53)
[2018-12-30] MEDS: OCTREOTIDE 1 MG in DEXTROSE 5% 95 ML IV SCH ×2 (06:55→20:59)
--- NOTE | 2018-12-30 10:00 | HP ---
Date/Time of Note Date/Time of Note DATE: 12/30/18 TIME: 09:42 Assessment/Plan VTE Prophylaxis SCD applied (from Nsg): Yes Pharmacological prophylaxis: NA/contraindicated Pharm contraindication: bleeding Lines/Catheters IV Catheter Type (from Nrsg): Peripheral IV Assessment/Plan Hospital Course Patient status post EGD yesterday continued on Protonix drip patient is still complains of significant abdominal pain and nausea. Assessment/Plan -Hematemesis, gastritis per EGD. Continue Protonix drip. Dr. Mayfield is following in gastroenterology consultation. -Intractable nausea and vomiting, continue Reglan as needed for nausea -Abdominal pain -History of irritable bowel syndrome -History of gastritis Further recommendations based on clinical course. Plan of care discussed with Dr. Serna. Result Diagram: 12/30/18 0554 12/30/18 0554 Results 24hrs Laboratory Tests Test 12/29/18 22:50 12/30/18 05:54 White Blood Count 13.2 #H 16.6 #H Red Blood Count 5.19 4.42 L Hemoglobin 16.7 14.4 Hematocrit 47.1 40.9 L Mean Corpuscular Volume 90.8 92.5 Mean Corpuscular Hemoglobin 32.2 32.6 Mean Corpuscular Hemoglobin Concent 35.5 35.2 Red Cell Distribution Width 12.0 12.4 Platelet Count 305 # 239 # Mean Platelet Volume 9.1 9.1 Immature Granulocytes % 0.600 H 0.700 H Neutrophils % 75.1 80.8 H Lymphocytes % 16.0 12.1 L Monocytes % 7.7 6.2 Eosinophils % 0.1 0.0 Basophils % 0.5 0.2 Nucleated Red Blood Cells % 0.0 0.0 Immature Granulocytes # 0.080 H 0.110 H Neutrophils # 9.9 H 13.4 H Lymphocytes # 2.1 2.0 Monocytes # 1.0 H 1.0 H Eosinophils # 0.0 0.0 Basophils # 0.1 0.0 Nucleated Red Blood Cells # 0.0 0.0 Prothrombin Time 12.9 Prothrombin Time Ratio 1.0 INR International Normalized Ratio 0.96 Activated Partial Thromboplast Time 28.0 Sodium Level 140 142 Potassium Level 3.6 4.0 Chloride Level 97 101 Carbon Dioxide Level 23 26 Anion Gap 20 H 15 H Blood Urea Nitrogen 17 16 Creatinine 1.12 0.84 Est Glomerular Filtrat Rate mL/min > 60 > 60 Glucose Level 180 172 Calcium Level 10.5 H 9.5 Total Bilirubin 0.8 Direct Bilirubin 0.00 Indirect Bilirubin 0.8 Aspartate Amino Transf (AST/SGOT) 21 Alanine Aminotransferase (ALT/SGPT) 14 Alkaline Phosphatase 72 Troponin I < 0.012 Total Protein 9.1 H Albumin 5.1 H Globulin 4.00 H Albumin/Globulin Ratio 1.27 HPI/ROS Admit Date/Time Admit Date/Time Dec 30, 2018 at 00:34 Hx of Present Illness The patient is 43-year-old male with history of irritable bowel syndrome was diagnosed 15 years ago history of gastritis and peptic ulcer disease. Patient takes protonic and Reglan as routine medication and hyoscyamine for IBD flareup. Patient underwent EGD by Dr. Mayfield in January 2016 which revealed chronic gastritis and 2 erosions in the stomach with pathology with no significant histopathologic abnormality. Patient presented to emergency room with severe epigastric pain, nausea and multiple episodes of coffee ground emesis. Patient had elevated white blood cells, tachycardia but no fever. Patient denies chest pain denies shortness of breath denies bilateral lower extremities edema denies fever and chills. Patient was started on Protonix and octreotide drip and admitted for further evaluation and management to telemetry floor. ROS 12 point review of system is negative except for what mentioned in HPI PMH/Family/Social Past Medical History Medical History: other (Irritable bowel syndrome, gastritis) Medications Current Medications Pantoprazole 80 mg/Sodium Chloride 100 ml @ 10 mls/hr Q10H IV Last administered on 12/30/18 09:37; Admin Dose 10 MLS/HR; Start 12/30/18 at 02:00 Octreotide Acetate 1 mg/ Dextrose 100 ml @ 5 mls/hr Q20H IV Last administered on 12/30/18 06:55; Admin Dose 5 MLS/HR; Start 12/30/18 at 02:00 Sodium Chloride 1,000 ml @ 100 mls/hr Q10H IV Last administered on 12/30/18 02:44; Admin Dose 100 MLS/HR; Start 12/30/18 at 02:00 Hydromorphone HCl (Dilaudid) 1 mg Q4H PRN IV SEVERE PAIN LEVEL 7-10 Last admi nistered on 2/20/19at 06:53; Admin Dose 1 MG; Start 12/30/18 at 02:00 Influenza Virus Vaccine Quadrival (Fluzone) 0.5 ml ONCE ONCE IM* ; Start 12/31/18 at 10:00; Stop 12/31/18 at 10:01 Ondansetron HCl (Zofran Inj) 4 mg Q6H PRN IV NAUSEA AND/OR VOMITING Last administered on 12/30/18at 06:53; Admin Dose 4 MG; Start 12/30/18 at 07:00 Coded Allergies: No Known Allergy (Unverified , 12/25/18) Past Surgical History Past Surgical Hx: endoscopy (Multiple) Family History Significant Family History: other (Hypertension and diabetes in patient's mother) Social History Alcohol Use: none Smoking Status: Never smoker Drug Use: none Exam/Review of Systems Vital Signs Vitals Vital Signs Date Temp Pulse Resp B/P (MAP) Pulse Ox O2 O2 Flow FiO2 Time Delivery Rate 12/30/18 77 08:30 12/30/18 Nasal 2.0 07:50 Cannula 12/30/18 98.3 17 113/75 100 07:14 (88) Intake and Output 12/29/18 12/29/18 12/30/18 1515:00 23:00 07:00 OutputOutput Total 1000 ml BalanceBalance -1000 ml Exam Constitutional: alert, oriented Head: normocephalic Neck: supple Respiratory: clear to auscultation Cardiovascular: regular rate and rhythm Gastrointestinal: soft, tender Musculoskeletal: nl extremities to inspection Extremities: normal pulses PADMINI HERR Dec 30, 2018 09:52
--- NOTE | 2018-12-30 15:45 | PREAC ---
Date/Time of Note Date/Time of Note DATE: 12/30/18 TIME: 15:44 Anesthesia Eval and Record Evaluation Time Pre-Procedure Interview DATE: 12/30/18 TIME: 15:44 Age 43 Sex male NPO: 8 hrs Preoperative diagnosis Hematemesis, Planned procedure EGD Past Medical History Past Medical History: Includes GI: GERD, Other Surgery & Anesthesia Issues No known issue Meds Anticoagulation: No Beta Shandra within 24 hr: No Reason Beta Shandra not given: Pt. not on B-Shandra Active Scripts Ondansetron (Ondansetron Odt) 4 Mg Tab.rapdis, 4 MG PO Q6H PRN for NAUSEA AND/OR VOMITING, #20 TAB Prov:KIERAN VÁSQUEZ MD 06/16/17 Reported Medications Lorazepam* (Lorazepam*) 1 Mg Tablet, 1 MG PO BID PRN for ANXIETY, #30 TAB 12/25/18 Metoclopramide Hcl* (Metoclopramide Hcl*) 10 Mg Tablet, 10 MG PO AC MEALS for 4 Days, #15 12/25/18 Dicyclomine HCl (Dicyclomine HCl) 20 Mg Tablet, 20 MG PO TID 12/25/18 Hyoscyamine Sulfate* (Hyoscyamine Sulfate*) 0.125 Mg Tab.subl, 0.125 MG SL Q4H, TAB 06/16/17 Pantoprazole* (Pantoprazole*) 40 Mg Tablet.dr, 40 MG PO AC BREAKFAST, TAB 03/26/17 Sucralfate* (Carafate*) 1 Gm Tab, 1 GM PO AC MEALS AND BEDTIME, TAB 03/26/17 Discontinued Reported Medications Metoclopramide* (Reglan*) 10 Mg Tablet, 10 MG PO AC MEALS, TAB 12/25/18 Hydromorphone Hcl* (Hydromorphone Hcl*) 2 Mg Tablet, 2 MG PO Q8H PRN for PAIN, TAB 06/16/17 Current Medications Pantoprazole 80 mg/Sodium Chloride 100 ml @ 10 mls/hr Q10H IV Last administered on 12/30/18at 09:37; Admin Dose 10 MLS/HR; Start 12/30/18 at 02:00 Octreotide Acetate 1 mg/ Dextrose 100 ml @ 5 mls/hr Q20H IV Last administered on 12/30/18at 06:55; Admin Dose 5 MLS/HR; Start 12/30/18 at 02:00 Sodium Chloride 1,000 ml @ 100 mls/hr Q10H IV Last administered on 12/30/18at 12:04; Admin Dose 100 MLS/HR; Start 12/30/18 at 02:00 Hydromorphone HCl (Dilaudid) 1 mg Q4H PRN IV SEVERE PAIN LEVEL 7-10 Last administered on 12/30/18at 10:52; Admin Dose 1 MG; Start 12/30/18 at 02:00 Influenza Virus Vaccine Quadrival (Fluzone) 0.5 ml ONCE ONCE IM* ; Start 12/31/18 at 10:00; Stop 12/31/18 at 10:01 Ondansetron HCl (Zofran Inj) 4 mg Q6H PRN IV NAUSEA AND/OR VOMITING Last administered on 12/30/18at 06:53; Admin Dose 4 MG; Start 12/30/18 at 07:00 Metoclopramide HCl (Reglan) 5 mg Q6H PRN IV NAUSEA AND/OR VOMITING; Start 12/30/18 at 10:00 Meds reviewed: Yes Allergies Coded Allergies: No Known Allergy (Unverified , 12/25/18) Allergies Reviewed: Yes Labs/Studies Labs Reviewed: Reviewed by anesthesiologist Result Diagram: 12/30/18 0554 12/30/18 0554 Laboratory Tests 12/30/18 05:54 Blood Bank Test 12/29/18 22:50 Antibody Screen NEGATIVE Blood Type O NEGATIVE test: N/A Studies: ECG (SR) Pre-procedure Exam Last vitals Vital Signs Date Temp Pulse Resp B/P (MAP) Pulse Ox O2 O2 Flow FiO2 Time Delivery Rate 12/30/18 74 13:06 12/30/18 97.7 19 125/82 100 12:12 (96) 12/30/18 Nasal 2.0 07:50 Cannula Airway: Adequate mouth opening Mallampati: Mallampati I Teeth: Normal Lung: Normal Heart: Normal ASA Physical Status ASA physical status: 2 Emergency: None Planned Anesthetic General/MAC: MAC Pre-operative Attestations Prior to commencing anesthesia and surgery, the patient was re-evaluated, there was verification of: *The patient's identity *The results of appropriate recent lab work and preoperative vital signs *The above evaluation not changing prior to induction *Anesthetic plan, risk benefits, alternative and complications discussed with patient/family; questions answered; patient/family understands, accepts and wishes to proceed. HUGO RIDER Dec 30, 2018 15:45
[2018-12-30] MEDS ORDERED: hydrALAzine 20 MG INJ IV PRN (16:00)
[2018-12-30] MEDS ORDERED: ONDANSETRON 4 MG INJ IV PRN (16:00)
[2018-12-30] MEDS ORDERED: LABETALOL HCL 20MG INJ IV PRN (16:00)
[2018-12-30] MEDS ORDERED: METOCLOPRAMIDE 10 MG INJ IV PRN (16:00)
--- NOTE | 2018-12-30 16:16 | PAC ---
Date/Time of Note Date/Time of Note DATE: 12/30/18 TIME: 16:15 Post-Anesthesia Notes Post-Anesthesia Note Last documented vital signs Vital Signs Date Temp Pulse Resp B/P (MAP) Pulse Ox O2 O2 Flow FiO2 Time Delivery Rate 12/30/18 74 13:06 12/30/18 97.7 19 125/82 100 12:12 (96) 12/30/18 Nasal 2.0 07:50 Cannula Activity: WNL Respiratory function: WNL Cardiovascular function: WNL Mental status: Baseline Pain reasonably controlled: Yes Hydration appropriate: Yes Nausea/Vomiting absent: Yes HUGO RIDER Dec 30, 2018 16:16
--- NOTE | 2018-12-30 17:44 | CONS ---
DATE OF ADMISSION: 12/30/2018 DATE OF CONSULTATION: TYPE OF CONSULTATION: GI. HISTORY OF PRESENT ILLNESS: A 43-year-old male with a history of spastic colon for the last many ye ars, presented to the emergency room complaining of abdominal pain, diarrhea, nausea, vomiting, and i n the vomitus, he had bright red blood. The patient was diagnosed to have IBS 15 years ago. In the ER, he was evaluated. He had a CAT scan done which shows terminal ileum inflammation. The patient d enies of any chest pain, no shortness of breath, no or MANAGER POOL problem. No weight loss. REVIEW OF SYSTEMS: Otherwise negative. PAST MEDICAL HISTORY: As described. HOME MEDICATIONS: 1. Pantoprazole. 2. Levsin under the tongue. PAST SURGICAL HISTORY: NONE. FAMILY HISTORY: Hypertension and diabetes in mother. SOCIAL HISTORY: Does not drink alcohol. No smoking, no drug abuse. PHYSICAL EXAMINATION: VITALS: Stable. HEENT: Unremarkable. NECK: Supple, no thyromegaly, no lymphadenopathy. CARDIOVASCULAR: No murmur, gallop or click. LUNGS: Clear. ABDOMEN: Benign. EXTREMITIES: No edema. CENTRAL NERVOUS SYSTEM: Grossly within normal limits. CAT scan showed inflammation of the terminal ileum. LABORATORY DATA: WBC is 13.2, hematocrit 47, dropped down to 40. CMP is within normal limit except for the calcium which was high at 10.5. Albumin was good, 5.1. IMPRESSION: 1. Nausea, vomiting with hematemesis. 2. Abdominal pain. 3. Diarrhea. 4. Terminal ileum inflammation. 5. History of irritable bowel syndrome. PLAN: To continue PPI. Stop octreotide. Reglan on a needed basis. We will schedule the patient fo r upper endoscopy. Monitor WBC count closely. Will send for IBD serology as an outpatient to make s ure we are not missing inflammatory bowel disease, especially Crohn disease. Dictated By: PIETER WEBBER MD PJ/NTS Conf#: [id number] DID#: [id number] CC: LO HUI MD; PIETER WEBBER MD;*EndCC*
[2018-12-31] VITALS (13 sets, daily range): BP systolic 100–126; BP diastolic 62–83; PULSE 59–73; RESP 18–20
[2018-12-31] MEDS: HYDROmorphONE 1 MG/ML SYG IV PRN ×6 (01:13→22:24)
[2018-12-31] MEDS: ONDANSETRON 4 MG INJ IV PRN (05:33)
[2018-12-31] MEDS: METOCLOPRAMIDE 10 MG INJ IV PRN ×2 (05:33→11:51)
[2018-12-31] MEDS: PANTOPRAZOLE IV 80 MG in SOD CHLORIDE 0.9% 100 ML IV SCH ×2 (07:26→17:36)
[2018-12-31] MEDS: SOD CHLORIDE 0.9% 1,000 ML IV SCH ×2 (07:26→17:36)
[2018-12-31] MEDS ORDERED: INFLUENZA VIRUS VACCINE 0.5 ML (DISPENSING) IM* ONE (10:00)
--- NOTE | 2018-12-31 16:51 | PN ---
Date/Time of Note Date/Time of Note DATE: 12/31/18 TIME: 16:50 Assessment/Plan VTE Prophylaxis Risk score (from Ns)>0 risk: 2 [place]CD applied (from [facility] [place] Yes Pharmacological prophylaxis: NA/contraindicated Pharm contraindication: bleeding Lines/Catheters IV C[facility] Type (from [facility] Peripheral IV Urinary Cath still in place: No Assessment/Plan Assessment/Plan Patient continues to have abdominal pain and nausea, status post EGD yesterday, Protonix drip. Assessment/Plan -Hematemesis, Protonix drip. Dr. Mayfield is following in gastroenterology consultation. -History of irritable bowel syndrome -History of gastritis Further recommendations based on clinical course. Plan of care discussed with Dr. Serna. Result Diagram: 12/30/1854 12/30/18553 Exam/Review of Systems Exam Vitals Vital Signs Date Temp Pulse Resp B/P (MAP) Pulse Ox O2 O2 Flow FiO2 Time Delivery Rate 12/31/18 60 16:07 12/31/18 98.0 20 116/75 95 Room Air 15:26 (89) 12/30/18 2.0 20:00 Intake and Output 12/30/18 12/30/18 12/31/18 1515:00 23:00 07:00 IntakeIntake Total 1000 ml 0 ml 1500 ml OutputOutput Total 900 ml 700 ml BalanceBalance 1000 ml -900 ml 800 ml Medications Medication Current Medications Pantoprazole 80 mg/Sodium Chloride 100 ml @ 10 mls/hr Q10H IV Last administered on 12/31/18at 07:26; Admin Dose 10 MLS/HR; Start 12/30/18 at 02:00 Sodium Chloride 1,000 ml @ 100 mls/hr Q10H IV Last administered on 12/31/18at 07:26; Admin Dose 100 MLS/HR; Start 12/30/18 at 02:00 Hydromorphone HCl (Dilaudid) 1 mg Q4H PRN IV SEVERE PAIN LEVEL 7-10 Last administered on 12/31/18at 14:05; Admin Dose 1 MG; Start 12/30/18 at 02:00 Ondansetron HCl (Zofran Inj) 4 mg Q6H PRN IV NAUSEA AND/OR VOMITING Last administered on 12/31/18at 05:33; Admin Dose 4 MG; Start 12/30/18 at 07:00 Metoclopramide HCl (Reglan) 5 mg Q6H PRN IV NAUSEA AND/OR VOMITING Last administered on 12/31/18at 11:51; Admin Dose 5 MG; Start 12/30/18 at 10:00 PADMINI HERR Dec 31, 2018 16:51
--- NOTE | 2018-12-31 17:22 | CONS ---
Assessment/Plan Assessment/Plan Assessment/Plan (Daily) IMPRESSION: 1. Nausea, vomiting with hematemesis. EGD showed gastritis biopsy also consistent with a gastritis 2. Abdominal pain. 3. Diarrhea. 4. Terminal ileum inflammation. 5. History of irritable bowel syndrome. Plan Advance diet Bentyl Consultation Date/Type/Reason Admit Date/Time Dec 30, 2018 at 00:34 Initial Consult Date Date/Time of Note DATE: 12/31/18 TIME: 17:21 24 HR Interval Summary Free Text/Dictation Complains of abdominal pain no vomiting Exam/Review of Systems Exam Vitals Vital Signs Date Temp Pulse Resp B/P (MAP) Pulse Ox O2 O2 Flow FiO2 Time Delivery Rate 12/31/18 60 16:07 12/31/18 98.0 20 116/75 95 Room Air 15:26 (89) 12/30/18 2.0 20:00 Intake and Output 12/30/18 12/30/18 12/31/18 1515:00 23:00 07:00 IntakeIntake Total 1000 ml 0 ml 1500 ml OutputOutput Total 900 ml 700 ml BalanceBalance 1000 ml -900 ml 800 ml Constitutional: alert, oriented, well developed Psych: no complaints, nl mood/affect Head: normocephalic, atraumatic Eyes: nl conjunctiva, EOMI, nl lids, nl sclera, PERRL ENMT: nl external ears & nose, nl lips & teeth, nl nasal mucosa & septum Neck: supple, non-tender Respiratory: clear to auscultation, normal air movement Cardiovascular: regular rate and rhythm, nl pulses Gastrointestinal: soft, nl liver, spleen, non-tender Musculoskeletal: nl extremities to inspection, nl gait and stance Extremities: normal pulses Neurological: [employer] II-XII intact, nl mental status, nl speech, nl strength Skin: nl turgor; No rash or lesions Lymph: nl lymph nodes Results Result Diagram: 12/30/1854 12/30/18553 Medications Medication Current Medications Pantoprazole 80 mg/Sodium Chloride 100 ml @ 10 mls/hr Q10H IV Last administered on 12/31/18at 07:26; Admin Dose 10 MLS/HR; Start 12/30/18 at 02:00 Sodium Chloride 1,000 ml @ 100 mls/hr Q10H IV Last administered on 12/31/18at 07:26; Admin Dose 100 MLS/HR; Start 12/30/18 at 02:00 Hydromorphone HCl (Dilaudid) 1 mg Q4H PRN IV SEVERE PAIN LEVEL 7-10 Last administered on 12/31/18at 14:05; Admin Dose 1 MG; Start 12/30/18 at 02:00 Ondansetron HCl (Zofran Inj) 4 mg Q6H PRN IV NAUSEA AND/OR VOMITING Last administered on 12/31/18at 05:33; Admin Dose 4 MG; Start 12/30/18 at 07:00 Metoclopramide HCl (Reglan) 5 mg Q6H PRN IV NAUSEA AND/OR VOMITING Last administered on 12/31/18at 11:51; Admin Dose 5 MG; Start 12/30/18 at 10:00 PIETER WEBBER MD Dec 31, 2018 17:22
[2018-12-31] MEDS: DICYCLOMINE 10 MG CAP PO SCH (21:13)
[2019-01-01] VITALS (12 sets, daily range): BP systolic 111–129; BP diastolic 73–87; PULSE 54–87; RESP 18–69
[2019-01-01] MEDS: HYDROmorphONE 1 MG/ML SYG IV PRN ×5 (03:03→20:26)
[2019-01-01] MEDS: PANTOPRAZOLE IV 80 MG in SOD CHLORIDE 0.9% 100 ML IV SCH ×2 (04:44→14:24)
[2019-01-01] MEDS: SOD CHLORIDE 0.9% 1,000 ML IV SCH ×2 (04:44→14:24)
[2019-01-01] MEDS: DICYCLOMINE 10 MG CAP PO SCH ×3 (06:46→20:29)
--- NOTE | 2019-01-01 10:16 | CONS ---
Assessment/Plan Assessment/Plan Assessment/Plan (Daily) Assessment/Plan Assessment/Plan (Daily) IMPRESSION: 1. Nausea, vomiting with hematemesis. EGD showed gastritis biopsy also consistent with a gastritis. Resolved 2. Abdominal pain. Much better 3. Diarrhea. 4. Terminal ileum inflammation. 5. History of irritable bowel syndrome. Plan Advance diet, patient is able to tolerate. Bentyl Ambulate patient Follow-up in the office and will workup the patient for IBD Consultation Date/Type/Reason Admit Date/Time Dec 30, 2018 at 00:34 Initial Consult Date Date/Time of Note DATE: 01/01/19 TIME: 10:15 24 HR Interval Summary Constitutional: improved Exam/Review of Systems Exam Vitals Vital Signs Date Temp Pulse Resp B/P (MAP) Pulse Ox O2 O2 Flow FiO2 Time Delivery Rate 01/01/19 98.5 60 18 128/78 94 Room Air 10:05 (95) 12/30/18 2.0 20:00 Intake and Output 12/31/18 12/31/18 01/01/19 1515:00 23:00 07:00 IntakeIntake Total 1200 ml 1770 ml OutputOutput Total 1300 ml BalanceBalance -100 ml 1770 ml Constitutional: alert, oriented, well developed Psych: no complaints, nl mood/affect Head: normocephalic, atraumatic Eyes: nl conjunctiva, EOMI, nl lids, nl sclera, PERRL ENMT: nl external ears & nose, nl lips & teeth, nl nasal mucosa & septum Neck: supple, non-tender Respiratory: clear to auscultation, normal air movement Cardiovascular: regular rate and rhythm, nl pulses Gastrointestinal: soft, nl liver, spleen, non-tender Musculoskeletal: nl extremities to inspection, nl gait and stance Extremities: normal pulses Neurological: GRANTS AND CONTRACTS ASSISTANT II-XII intact, nl mental status, nl speech, nl strength Skin: nl turgor; No rash or lesions Lymph: nl lymph nodes Results Result Diagram: 01/01/19 0637 01/01/19 0637 Results 24hrs Laboratory Tests Test 01/01/19 06:37 White Blood Count 8.6 # Red Blood Count 4.32 L Hemoglobin 13.9 L Hematocrit 40.7 L Mean Corpuscular Volume 94.2 Mean Corpuscular Hemoglobin 32.2 Mean Corpuscular Hemoglobin Concent 34.2 Red Cell Distribution Width 12.1 Platelet Count 220 Mean Platelet Volume 9.2 Immature Granulocytes % 0.300 Neutrophils % 61.3 Lymphocytes % 24.9 Monocytes % 11.0 Eosinophils % 1.9 Basophils % 0.6 Nucleated Red Blood Cells % 0.0 Immature Granulocytes # 0.030 Neutrophils # 5.3 Lymphocytes # 2.2 Monocytes # 1.0 H Eosinophils # 0.2 Basophils # 0.1 Nucleated Red Blood Cells # 0.0 Sodium Level 139 Potassium Level 3.5 Chloride Level 101 Carbon Dioxide Level 34 H Anion Gap 4 L Blood Urea Nitrogen 8 Creatinine 0.70 Est Glomerular Filtrat Rate mL/min > 60 Glucose Level 100 Calcium Level 9.3 Medications Medication Current Medications Pantoprazole 80 mg/Sodium Chloride 100 ml @ 10 mls/hr Q10H IV Last adminis tered on 01/01/19 04:44; Admin Dose 10 MLS/HR; Start 12/30/18 at 02:00 Sodium Chloride 1,000 ml @ 100 mls/hr Q10H IV Last administered on 01/01/19 04:44; Admin Dose 100 MLS/HR; Start 12/30/18 at 02:00 Hydromorphone HCl (Dilaudid) 1 mg Q4H PRN IV SEVERE PAIN LEVEL 7-10 Last administered on 01/01/19 08:21; Admin Dose 1 MG; Start 12/30/18 at 02:00 Ondansetron HCl (Zofran Inj) 4 mg Q6H PRN IV NAUSEA AND/OR VOMITING Last administered on 12/31/18 05:33; Admin Dose 4 MG; Start 12/30/18 at 07:00 Metoclopramide HCl (Reglan) 5 mg Q6H PRN IV NAUSEA AND/OR VOMITING Last administered on 12/31/18 11:51; Admin Dose 5 MG; Start 12/30/18 at 10:00 Dicyclomine HCl (Bentyl) 20 mg Q8 PO Last administered on 01/01/19 06:46; Admin Dose 20 MG; Start 12/31/18 at 22:00 PIETER WEBBER MD Jan 01, 2019 10:16
--- NOTE | 2019-01-01 17:11 | PN ---
Date/Time of Note Date/Time of Note DATE: 01/01/19 TIME: 17:11 Assessment/Plan VTE Prophylaxis Risk score (from Nsg)>0 risk: 1 SCD applied (from Nsg): Yes Lines/Catheters IV Catheter Type (from Nrsg): Saline Lock Urinary Cath still in place: No Assessment/Plan Assessment/Plan 1. Nausea, vomiting with hematemesis. EGD showed gastritis biopsy also consistent with a gastritis. Resolved 2. Abdominal pain. Much better 3. Diarrhea. 4. Terminal ileum inflammation. 5. History of irritable bowel syndrome. Plan Advance diet, patient is able to tolerate. Bentyl Ambulate patient Follow-up in the office and will workup the patient for IBD Result Diagram: 01/01/1963601/01/19636 Results 24hrs Laboratory Tests Test 01/01/19 06:37 White Blood Count 8.6 # Red Blood Count 4.32 L Hemoglobin 13.9 L Hematocrit 40.7 L Mean Corpuscular Volume 94.2 Mean Corpuscular Hemoglobin 32.2 Mean Corpuscular Hemoglobin Concent 34.2 Red Cell Distribution Width 12.1 Platelet Count 220 Mean Platelet Volume 9.2 Immature Granulocytes % 0.300 Neutrophils % 61.3 Lymphocytes % 24.9 Monocytes % 11.0 Eosinophils % 1.9 Basophils % 0.6 Nucleated Red Blood Cells % 0.0 Immature Granulocytes # 0.030 Neutrophils # 5.3 Lymphocytes # 2.2 Monocytes # 1.0 H Eosinophils # 0.2 Basophils # 0.1 Nucleated Red Blood Cells # 0.0 Sodium Level 139 Potassium Level 3.5 Chloride Level 101 Carbon Dioxide Level 34 H Anion Gap 4 L Blood Urea Nitrogen 8 Creatinine 0.70 Est Glomerular Filtrat Rate mL/min > 60 Glucose Level 100 Calcium Level 9.3 Subjective 24 Hr Interval Summary Gastrointestinal: pain Exam/Review of Systems Exam Vitals Vital Signs Date Temp Pulse Resp B/P (MAP) Pulse Ox O2 O2 Flow FiO2 Time Delivery Rate 01/01/19 61 16:07 01/01/19 99.2 20 114/73 96 Room Air 15:35 (87) 12/30/18 2.0 20:00 Intake and Output 12/31/18 12/31/18 01/01/19 1515:00 23:00 07:00 IntakeIntake Total 1200 ml 1770 ml OutputOutput Total 1300 ml BalanceBalance -100 ml 1770 ml Results Results 24hrs Laboratory Tests Test 01/01/19 06:37 White Blood Count 8.6 # Red Blood Count 4.32 L Hemoglobin 13.9 L Hematocrit 40.7 L Mean Corpuscular Volume 94.2 Mean Corpuscular Hemoglobin 32.2 Mean Corpuscular Hemoglobin Concent 34.2 Red Cell Distribution Width 12.1 Platelet Count 220 Mean Platelet Volume 9.2 Immature Granulocytes % 0.300 Neutrophils % 61.3 Lymphocytes % 24.9 Monocytes % 11.0 Eosinophils % 1.9 Basophils % 0.6 Nucleated Red Blood Cells % 0.0 Immature Granulocytes # 0.030 Neutrophils # 5.3 Lymphocytes # 2.2 Monocytes # 1.0 H Eosinophils # 0.2 Basophils # 0.1 Nucleated Red Blood Cells # 0.0 Sodium Level 139 Potassium Level 3.5 Chloride Level 101 Carbon Dioxide Level 34 H Anion Gap 4 L Blood Urea Nitrogen 8 Creatinine 0.70 Est Glomerular Filtrat Rate mL/min > 60 Glucose Level 100 Calcium Level 9.3 Medications Medication Current Medications Pantoprazole 80 mg/Sodium Chloride 100 ml @ 10 mls/hr Q10H IV Last administered on 01/01/19 14:24; Admin Dose 10 MLS/HR; Start 12/30/18 at 02:00 Sodium Chloride 1,000 ml @ 100 mls/hr Q10H IV Last administered on 01/01/19 14:24; Admin Dose 100 MLS/HR; Start 12/30/18 at 02:00 Hydromorphone HCl (Dilaudid) 1 mg Q4H PRN IV SEVERE PAIN LEVEL 7-10 Last administered on 01/01/19 16:34; Admin Dose 1 MG; Start 12/30/18 at 02:00 Ondansetron HCl (Zofran Inj) 4 mg Q6H PRN IV NAUSEA AND/OR VOMITING Last admini stered on 12/31/18 05:33; Admin Dose 4 MG; Start 12/30/18 at 07:00 Metoclopramide HCl (Reglan) 5 mg Q6H PRN IV NAUSEA AND/OR VOMITING Last administered on 12/31/18 11:51; Admin Dose 5 MG; Start 12/30/18 at 10:00 Dicyclomine HCl (Bentyl) 20 mg Q8 PO Last administered on 2/22/19at 14:24; Admin Dose 20 MG; Start 12/31/18 at 22:00 DAVIDA PALAFOX Jan 01, 2019 17:11
[2019-01-02] VITALS (12 sets, daily range): BP systolic 112–128; BP diastolic 71–81; PULSE 53–68; RESP 17–20
[2019-01-02] MEDS: HYDROmorphONE 1 MG/ML SYG IV PRN ×6 (00:16→21:04)
[2019-01-02] MEDS: SOD CHLORIDE 0.9% 1,000 ML IV SCH ×3 (00:16→20:00)
[2019-01-02] MEDS: PANTOPRAZOLE IV 80 MG in SOD CHLORIDE 0.9% 100 ML IV SCH ×2 (00:16→10:25)
[2019-01-02] MEDS: DICYCLOMINE 10 MG CAP PO SCH ×3 (05:02→21:04)
--- NOTE | 2019-01-02 10:47 | CONS ---
Assessment/Plan Assessment/Plan Assessment/Plan (Daily) IMPRESSION: 1. Nausea, vomiting with hematemesis. EGD showed gastritis biopsy also consistent with a gastritis. Resolved 2. Abdominal pain. Much better 3. Diarrhea. 4. Terminal ileum inflammation. 5. History of irritable bowel syndrome. Plan Advance diet, patient is able to tolerate. Bentyl Ambulate patient Follow-up in the office and will workup the patient for IBD P.o. Protonix Consultation Date/Type/Reason Admit Date/Time Dec 30, 2018 at 00:34 Initial Consult Date Date/Time of Note DATE: 01/02/19 TIME: 10:46 24 HR Interval Summary Free Text/Dictation Mild abdominal discomfort no nausea no vomiting Constitutional: improved Exam/Review of Systems Exam Vitals Vital Signs Date Temp Pulse Resp B/P (MAP) Pulse Ox O2 O2 Flow FiO2 Time Delivery Rate 01/02/19 53 08:00 01/02/19 98.2 20 121/81 98 Room Air 07:20 (94) 12/30/18 2.0 20:00 Intake and Output 01/01/19 01/01/19 01/02/19 1515:00 23:00 07:00 IntakeIntake Total 1100 ml 1940 ml OutputOutput Total 900 ml 800 ml BalanceBalance 200 ml 1140 ml Constitutional: alert, oriented, well developed Psych: no complaints, nl mood/affect Head: normocephalic, atraumatic Eyes: nl conjunctiva, EOMI, nl lids, nl sclera, PERRL ENMT: nl external ears & nose, nl lips & teeth, nl nasal mucosa & septum Neck: supple, non-tender Respiratory: clear to auscultation, normal air movement Cardiovascular: regular rate and rhythm, nl pulses Gastrointestinal: soft, nl liver, spleen, non-tender Musculoskeletal: nl extremities to inspection, nl gait and stance Extremities: normal pulses Neurological: PEDIATRIC GENETICIST II-XII intact, nl mental status, nl speech, nl strength Skin: nl turgor; No rash or lesions Lymph: nl lymph nodes Results Result Diagram: 01/02/19 0538 01/02/19 0538 Results 24hrs Laboratory Tests Test 01/02/19 05:38 White Blood Count 7.6 Red Blood Count 4.28 L Hemoglobin 13.8 L Hematocrit 40.0 L Mean Corpuscular Volume 93.5 Mean Corpuscular Hemoglobin 32.2 Mean Corpuscular Hemoglobin Concent 34.5 Red Cell Distribution Width 11.9 Platelet Count 211 Mean Platelet Volume 9.1 Immature Granulocytes % 0.400 Neutrophils % 54.7 Lymphocytes % 29.6 Monocytes % 10.9 Eosinophils % 3.7 Basophils % 0.7 Nucleated Red Blood Cells % 0.0 Immature Granulocytes # 0.030 Neutrophils # 4.2 Lymphocytes # 2.3 Monocytes # 0.8 Eosinophils # 0.3 Basophils # 0.1 Nucleated Red Blood Cells # 0.0 Sodium Level 138 Potassium Level 3.9 Chloride Level 102 Carbon Dioxide Level 30 Anion Gap 6 Blood Urea Nitrogen 8 Creatinine 0.74 Est Glomerular Filtrat Rate mL/min > 60 Glucose Level 105 Calcium Level 9.1 Medications Medication Current Medications Pantoprazole 80 mg/Sodium Chloride 100 ml @ 10 mls/hr Q10H IV Last administered on 01/02/19 10:25; Admin Dose 10 MLS/HR; Start 12/30/18 at 02:00 Sodium Chloride 1,000 ml @ 100 mls/hr Q10H IV Last administered on 01/02/19 10:25; Admin Dose 100 MLS/HR; Start 12/30/18 at 02:00 Hydromorphone HCl (Dilaudid) 1 mg Q4H PRN IV SEVERE PAIN LEVEL 7-10 Last administered on 01/02/19 08:44; Admin Dose 1 MG; Start 12/30/18 at 02:00 Ondansetron HCl (Zofran Inj) 4 mg Q6H PRN IV NAUSEA AND/OR VOMITING Last admini stered on 12/31/18 05:33; Admin Dose 4 MG; Start 12/30/18 at 07:00 Metoclopramide HCl (Reglan) 5 mg Q6H PRN IV NAUSEA AND/OR VOMITING Last administered on 12/31/18 11:51; Admin Dose 5 MG; Start 12/30/18 at 10:00 Dicyclomine HCl (Bentyl) 20 mg Q8 PO Last administered on 01/02/19 05:02; Admin Dose 20 MG; Start 12/31/18 at 22:00 PIETER WEBBER MD Jan 02, 2019 10:47
--- NOTE | 2019-01-02 11:30 | PN ---
Date/Time of Note Date/Time of Note DATE: 01/02/19 TIME: 11:29 Assessment/Plan VTE Prophylaxis Risk score (from Ns)>0 risk: 1 SCD applied (from Ns): Yes Pharmacological prophylaxis: LMWH Lines/Catheters IV Catheter Type (from [facility]): Saline Lock Urinary Cath still in place: No Assessment/Plan Hospital Course 1. Nausea, vomiting with hematemesis. EGD showed gastritis biopsy also co nsistent with a gastritis. Resolved 2. Abdominal pain. Much better 3. Diarrhea. 4. Terminal ileum inflammation. 5. History of irritable bowel syndrome. Result Diagram: 01/02/1953701/02/19537 Results 24hrs Laboratory Tests Test 01/02/19 05:38 White Blood Count 7.6 Red Blood Count 4.28 L Hemoglobin 13.8 L Hematocrit 40.0 L Mean Corpuscular Volume 93.5 Mean Corpuscular Hemoglobin 32.2 Mean Corpuscular Hemoglobin Concent 34.5 Red Cell Distribution Width 11.9 Platelet Count 211 Mean Platelet Volume 9.1 Immature Granulocytes % 0.400 Neutrophils % 54.7 Lymphocytes % 29.6 Monocytes % 10.9 Eosinophils % 3.7 Basophils % 0.7 Nucleated Red Blood Cells % 0.0 Immature Granulocytes # 0.030 Neutrophils # 4.2 Lymphocytes # 2.3 Monocytes # 0.8 Eosinophils # 0.3 Basophils # 0.1 Nucleated Red Blood Cells # 0.0 Sodium Level 138 Potassium Level 3.9 Chloride Level 102 Carbon Dioxide Level 30 Anion Gap 6 Blood Urea Nitrogen 8 Creatinine 0.74 Est Glomerular Filtrat Rate mL/min > 60 Glucose Level 105 Calcium Level 9.1 Subjective 24 Hr Interval Summary Free Text/Dictation Patient still have abdominal pain but is improved. Exam/Review of Systems Exam Vitals Vital Signs Date Temp Pulse Resp B/P (MAP) Pulse Ox O2 O2 Flow FiO2 Time Delivery Rate 01/02/19 53 08:00 01/02/19 98.2 20 121/81 98 Room Air 07:20 (94) 12/30/18 2.0 20:00 Intake and Output 01/01/19 01/01/19 01/02/19 1515:00 23:00 07:00 IntakeIntake Total 1100 ml 1940 ml OutputOutput Total 900 ml 800 ml BalanceBalance 200 ml 1140 ml Constitutional: well developed Head: normocephalic, atraumatic Neck: supple Respiratory: diminished breath sounds Cardiovascular: regular rate and rhythm Gastrointestinal: soft, non-tender Extremities: normal pulses Results Results 24hrs Laboratory Tests Test 01/02/19 05:38 White Blood Count 7.6 Red Blood Count 4.28 L Hemoglobin 13.8 L Hematocrit 40.0 L Mean Corpuscular Volume 93.5 Mean Corpuscular Hemoglobin 32.2 Mean Corpuscular Hemoglobin Concent 34.5 Red Cell Distribution Width 11.9 Platelet Count 211 Mean Platelet Volume 9.1 Immature Granulocytes % 0.400 Neutrophils % 54.7 Lymphocytes % 29.6 Monocytes % 10.9 Eosinophils % 3.7 Basophils % 0.7 Nucleated Red Blood Cells % 0.0 Immature Granulocytes # 0.030 Neutrophils # 4.2 Lymphocytes # 2.3 Monocytes # 0.8 Eosinophils # 0.3 Basophils # 0.1 Nucleated Red Blood Cells # 0.0 Sodium Level 138 Potassium Level 3.9 Chloride Level 102 Carbon Dioxide Level 30 Anion Gap 6 Blood Urea Nitrogen 8 Creatinine 0.74 Est Glomerular Filtrat Rate mL/min > 60 Glucose Level 105 Calcium Level 9.1 Medications Medication Current Medications Sodium Chloride 1,000 ml @ 100 mls/hr Q10H IV Last administered on 01/02/19at 10:25; Admin Dose 100 MLS/HR; Start 12/30/18 at 02:00 Hydromorphone HCl (Dilaudid) 1 mg Q4H PRN IV SEVERE PAIN LEVEL 7-10 Last administered on 01/02/19at 08:44; Admin Dose 1 MG; Start 12/30/18 at 02:00 Ondansetron HCl (Zofran Inj) 4 mg Q6H PRN IV NAUSEA AND/OR VOMITING Last administered on 12/31/18at 05:33; Admin Dose 4 MG; Start 12/30/18 at 07:00 Metoclopramide HCl (Reglan) 5 mg Q6H PRN IV NAUSEA AND/OR VOMITING Last administered on 12/31/18at 11:51; Admin Dose 5 MG; Start 12/30/18 at 10:00 Dicyclomine HCl (Bentyl) 20 mg Q8 PO Last administered on 01/02/19at 05:02; Admin Dose 20 MG; Start 12/31/18 at 22:00 Pantoprazole (Protonix Tab) 40 mg DAILY@06 PO ; Start 01/03/19 at 06:00 MARY HICKS Jan 02, 2019 11:30
[2019-01-02] MEDS: METOCLOPRAMIDE 10 MG INJ IV PRN (15:25)
[2019-01-03] VITALS (8 sets, daily range): BP systolic 119–130; BP diastolic 67–89; PULSE 56–117; RESP 16–18
[2019-01-03] MEDS: HYDROmorphONE 1 MG/ML SYG IV PRN ×4 (00:27→12:25)
[2019-01-03] MEDS: SOD CHLORIDE 0.9% 1,000 ML IV SCH (03:50)
[2019-01-03] MEDS: DICYCLOMINE 10 MG CAP PO SCH (05:36)
[2019-01-03] MEDS ORDERED: PANTOPRAZOLE (EC) 40 MG TAB PO SCH (06:00)
--- NOTE | 2019-01-03 11:47 | DS ---
Date/Time of Note Date/Time of Note DATE: 01/03/19 TIME: 11:44 Discharge Summary Admission/Discharge Info Admit Date/Time Dec 30, 2018 at 00:34 Discharge Date/Time 01/03/19 Discharge Diagnosis 1. Nausea, vomiting with hematemesis. EGD showed gastritis biopsy also consistent with a gastritis. Resolved 2. Abdominal pain. Much better 3. Diarrhea. 4. Terminal ileum inflammation. 5. History of irritable bowel syndrome. Patient Condition: Fair Consults GI Procedures EGD Hx of Present Illness Patient comes in with hematemesis with nausea and vomiting. Hospital Course Patient comes in with hematemesis with nausea and vomiting. Patient was monitored and underwent EGD which showed gastritis. Patient was treated with PPI and symptomatic treatment and the patient improved. When felt to be stable he was sent home with continued medication for gastritis. 1. Nausea, vomiting with hematemesis. EGD showed gastritis biopsy also consistent with a gastritis. Resolved 2. Abdominal pain. Much better 3. Diarrhea. 4. Terminal ileum inflammation. 5. History of irritable bowel syndrome. Home Meds Active Scripts Ondansetron (Ondansetron Odt) 4 Mg Tab.rapdis, 4 MG PO Q6H PRN for NAUSEA AND/OR VOMITING, #20 TAB Prov:KIERAN VÁSQUEZ MD 06/16/17 Reported Medications Lorazepam* (Lorazepam*) 1 Mg Tablet, 1 MG PO BID PRN for ANXIETY, #30 TAB 12/25/18 Metoclopramide Hcl* (Metoclopramide Hcl*) 10 Mg Tablet, 10 MG PO AC MEALS for 4 Days, #15 12/25/18 Dicyclomine HCl (Dicyclomine HCl) 20 Mg Tablet, 20 MG PO TID 12/25/18 Hyoscyamine Sulfate* (Hyoscyamine Sulfate*) 0.125 Mg Tab.subl, 0.125 MG SL Q4H, TAB 06/16/17 Pantoprazole* (Pantoprazole*) 40 Mg Tablet.dr, 40 MG PO AC BREAKFAST, TAB 03/26/17 Sucralfate* (Carafate*) 1 Gm Tab, 1 GM PO AC MEALS AND BEDTIME, TAB 03/26/17 Primary Care Provider [facility] Pending Labs Laboratory Tests Test 01/03/19 05:34 White Blood Count 7.2 10^3/ul (4.8-10.8) Red Blood Count 4.25 10^6/ul (4.70-6.10) Hemoglobin 13.7 g/dl (14.0-18.0) Hematocrit 39.5 % (42.0-52.0) Mean Corpuscular Volume 92.9 fl (82.0-101.0) Mean Corpuscular Hemoglobin 32.2 pg (29.0-33.0) Mean Corpuscular Hemoglobin Concent 34.7 g/dl (32.0-37.0) Red Cell Distribution Width 11.9 % (11.5-14.5) Platelet Count 217 10^3/UL (140-415) Mean Platelet Volume 9.0 fl (7.4-10.4) Immature Granulocytes % 0.400 % (0.001-0.429) Neutrophils % 47.7 % (39.0-77.0) Lymphocytes % 35.9 % (15.0-51.0) Monocytes % 10.6 % (0.0-11.0) Eosinophils % 4.7 % (0.0-7.0) Basophils % 0.7 % (0.0-2.0) Nucleated Red Blood Cells % 0.0 /100WBC (0.0-0.0) Immature Granulocytes # 0.030 10^3/ul (0.0-0.031) Neutrophils # 3.5 10^3/ul (1.6-7.5) Lymphocytes # 2.6 10^3/ul (0.8-2.9) Monocytes # 0.8 10^3/ul (0.3-0.9) Eosinophils # 0.3 10^3/ul (0.0-0.5) Basophils # 0.1 10^3/ul (0.0-0.1) Nucleated Red Blood Cells # 0.0 10^3/ul (0.0-0.0) Sodium Level 141 mmol/L (135-144) Potassium Level 3.4 mmol/L (3.5-5.1) Chloride Level 104 mmol/L (97-110) Carbon Dioxide Level 30 mmol/L (21-31) Anion Gap 7 (5-13) Blood Urea Nitrogen 7 mg/dl (7-20) Creatinine 0.69 mg/dl (0.61-1.24) Est Glomerular Filtrat Rate mL/min > 60 mL/min (>60) Glucose Level 124 mg/dl (70-220) Calcium Level 9.1 mg/dl (8.4-10.2) MARY HICKS Jan 03, 2019 11:47
[2019-01-03] MEDS ORDERED: POTASSIUM CHLORIDE (SR) 20 MEQ TAB PO STA (12:20)
--- NOTE | 2019-01-03 14:27 | CONS ---
Assessment/Plan Assessment/Plan Assessment/Plan (Daily) IMPRESSION: 1. Nausea, vomiting with hematemesis. EGD showed gastritis biopsy also consistent with a gastritis. Resolved 2. Abdominal pain. Much better 3. Diarrhea. 4. Terminal ileum inflammation. 5. History of irritable bowel syndrome. Plan Advance diet, patient is able to tolerate. Bentyl Ambulate patient Follow-up in the office and will workup the patient for IBD P.o. Protonix Consultation Date/Type/Reason Admit Date/Time Dec 30, 2018 at 00:34 Initial Consult Date Date/Time of Note DATE: 01/03/19 TIME: 14:26 24 HR Interval Summary Free Text/Dictation Patient was seen by me around 11:00. No abdominal pain, no nausea no vomiting no diarrhea Exam/Review of Systems Exam Vitals Vital Signs Date Temp Pulse Resp B/P (MAP) Pulse Ox O2 O2 Flow FiO2 Time Delivery Rate 01/03/19 68 12:06 01/03/19 98.5 16 119/76 97 11:12 (90) 01/02/19 Room Air 16:00 12/30/18 2.0 20:00 Intake and Output 01/02/19 01/02/19 01/03/19 1515:00 23:00 07:00 IntakeIntake Total 900 ml 750 ml OutputOutput Total 1500 ml 450 ml BalanceBalance -600 ml 300 ml Constitutional: alert, oriented, well developed Psych: no complaints, nl mood/affect Head: normocephalic, atraumatic Eyes: nl conjunctiva, EOMI, nl lids, nl sclera, PERRL ENMT: nl external ears & nose, nl lips & teeth, nl nasal mucosa & septum Neck: supple, non-tender Respiratory: clear to auscultation, normal air movement Cardiovascular: regular rate and rhythm, nl pulses Gastrointestinal: soft, nl liver, spleen, non-tender Musculoskeletal: nl extremities to inspection, nl gait and stance Extremities: normal pulses Neurological: BAG CUTTER II-XII intact, nl mental status, nl speech, nl strength Skin: nl turgor; No rash or lesions Lymph: nl lymph nodes Results Result Diagram: 01/03/19 0534 01/03/19 0534 Results 24hrs Laboratory Tests Test 01/03/19 05:34 White Blood Count 7.2 Red Blood Count 4.25 L Hemoglobin 13.7 L Hematocrit 39.5 L Mean Corpuscular Volume 92.9 Mean Corpuscular Hemoglobin 32.2 Mean Corpuscular Hemoglobin Concent 34.7 Red Cell Distribution Width 11.9 Platelet Count 217 Mean Platelet Volume 9.0 Immature Granulocytes % 0.400 Neutrophils % 47.7 Lymphocytes % 35.9 Monocytes % 10.6 Eosinophils % 4.7 Basophils % 0.7 Nucleated Red Blood Cells % 0.0 Immature Granulocytes # 0.030 Neutrophils # 3.5 Lymphocytes # 2.6 Monocytes # 0.8 Eosinophils # 0.3 Basophils # 0.1 Nucleated Red Blood Cells # 0.0 Sodium Level 141 Potassium Level 3.4 L Chloride Level 104 Carbon Dioxide Level 30 Anion Gap 7 Blood Urea Nitrogen 7 Creatinine 0.69 Est Glomerular Filtrat Rate mL/min > 60 Glucose Level 124 Calcium Level 9.1 PIETER WEBBER MD Jan 03, 2019 14:27
== END 2019-01-03 13:57 | disposition home or self-care (01) | DRG 378 ==
LOC: E/R 22:19 → TEL 12-30 00:34
PROVIDERS: ADMIT Internal Medicine; ATTEND Internal Medicine
PROC: 0DB68ZX Excision of Stomach, Via Natural or Artificial Opening Endoscopic, Diagnostic (ICD-10-PCS; principal; 2018-12-30 16:36)
DX: K29.51 Unspecified chronic gastritis with bleeding (principal); K50.00 Crohn's disease of small intestine without complications; K58.0 Irritable bowel syndrome with diarrhea; K21.9 Gastro-esophageal reflux disease without esophagitis; K29.80 Duodenitis without bleeding
CPT/HCPCS: 36415; 80048; 80053; 84484; 85025; 85610; 85730; 86850; 86900; 86901; 87040; 88305; 88312; 90686; 93005; 96365; 96367; 96375; 96376; C9113; J0696; J1170; J2270; J2354; J2405; J2765; J7030

== ENCOUNTER 2019-05-04 00:51 | Inpatient (IN) | payer OTHER ==
[~2019-05-04] VITALS: Ht 167.6 cm; Wt 67.0 kg
[2019-05-04] MEDS ORDERED: PANTOPRAZOLE IV 80 MG in SOD CHLORIDE 0.9% 100 ML IVPB STA (01:26)
[2019-05-04] MEDS ORDERED: PANTOPRAZOLE IV 80 MG in SOD CHLORIDE 0.9% 100 ML IV STA (01:26)
[2019-05-04] MEDS ORDERED: SOD CHLORIDE 0.9% 1,000 ML IV STA (01:26)
[2019-05-04] MEDS ORDERED: OCTREOTIDE 500 MCG in SOD CHLORIDE 0.9% 49 ML IV STA (01:26)
[2019-05-04] MEDS ORDERED: ONDANSETRON 4 MG INJ IV STA ×4 (01:26→06:49)
[2019-05-04] MEDS ORDERED: OCTREOTIDE 50 MCG in SOD CHLORIDE 0.9% 25 ML IVPB STA (01:26)
[2019-05-04] MEDS ORDERED: LORAZEPAM 2 MG INJ IV ONE (02:00)
[2019-05-04] MEDS ORDERED: HYDROmorphONE 1 MG/ML SYG IV STA ×3 (02:05→06:49)
--- NOTE | 2019-05-04 03:28 | ERD ---
ER Documentation Chief Complaint Chief Complaint abdominal pain/blood in vomit x 1 day. hx of ibs HPI Is a 44-year-old male who complains of epigastric abdominal pain with vomiting blood for the past day. Is a 35 surgeries. No fevers or chills. No other current complaints. Patient has history of progressive gastritis and irritable bowel syndrome. Reviewing EMR, patient's been here previously for this ROS All systems reviewed and are negative except as per history of present illness. Medications Home Meds Active Scripts Ondansetron (Ondansetron Odt) 4 Mg Tab.rapdis, 4 MG PO Q6H PRN for NAUSEA AND/OR VOMITING, #20 TAB Prov:KIERAN VÁSQUEZ MD 06/16/17 Reported Medications Lorazepam* (Lorazepam*) 1 Mg Tablet, 1 MG PO BID PRN for ANXIETY, #30 TAB 12/25/18 Metoclopramide Hcl* (Metoclopramide Hcl*) 10 Mg Tablet, 10 MG PO AC MEALS for 4 Days, #15 12/25/18 Dicyclomine HCl (Dicyclomine HCl) 20 Mg Tablet, 20 MG PO TID 12/25/18 Hyoscyamine Sulfate* (Hyoscyamine Sulfate*) 0.125 Mg Tab.subl, 0.125 MG SL Q4H, TAB 06/16/17 Pantoprazole* (Pantoprazole*) 40 Mg Tablet.dr, 40 MG PO AC BREAKFAST, TAB 03/26/17 Sucralfate* (Carafate*) 1 Gm Tab, 1 GM PO AC MEALS AND BEDTIME, TAB 03/26/17 Allergies Allergies: Coded Allergies: No Known Allergy (Unverified , 12/25/18) PMhx/Soc History of Surgery: No Anesthesia Reaction: No Hx Neurological Disorder: No Hx Respiratory Disorders: No Hx Cardiac Disorders: No Hx Psychiatric Problems: No Hx Miscellaneous Medical Probl: No Hx Alcohol Use: No Hx Substance Use: No Hx Tobacco Use: No Smoking Status: Never smoker Physical Exam Vitals Vital Signs Date Temp Pulse Resp B/P (MAP) Pulse Ox O2 O2 Flow FiO2 Time Delivery Rate 05/04/19 Nasal 01:29 Cannula 05/04/19 99.3 80 20 140/71 98 Room Air 01:27 (94) 05/04/19 99.3 109 20 145/60 98 00:55 (88) Physical Exam Const: No acute distress Head: Atraumatic Eyes: Normal Conjunctiva ENT: Normal External Ears, Nose and Mouth. Neck: Full range of motion. No meningismus. Resp: Clear to auscultation bilaterally Cardio: Regular rate and rhythm, no murmurs Abd: Soft, non tender, non distended. Normal bowel sounds Skin: No petechiae or rashes Back: No midline or flank tenderness Ext: No cyanosis, or edema Neur: Awake and alert Psych: Normal Mood and Affect Result Diagram: 05/04/1913405/04/19 013 Results 24 hrs Laboratory Tests Test 05/04/19 01:35 White Blood Count 14.7 10^3/ul Red Blood Count 5.23 10^6/ul Hemoglobin 16.7 g/dl Hematocrit 48.5 % Mean Corpuscular Volume 92.7 fl Mean Corpuscular Hemoglobin 31.9 pg Mean Corpuscular Hemoglobin Concent 34.4 g/dl Red Cell Distribution Width 12.9 % Platelet Count 260 10^3/UL Mean Platelet Volume 9.0 fl Immature Granulocytes % 0.400 % Neutrophils % 83.7 % Lymphocytes % 10.9 % Monocytes % 4.7 % Eosinophils % 0.0 % Basophils % 0.3 % Nucleated Red Blood Cells % 0.0 /100WBC Immature Granulocytes # 0.060 10^3/ul Neutrophils # 12.3 10^3/ul Lymphocytes # 1.6 10^3/ul Monocytes # 0.7 10^3/ul Eosinophils # 0.0 10^3/ul Basophils # 0.0 10^3/ul Nucleated Red Blood Cells # 0.0 10^3/ul Prothrombin Time 13.3 Sec Prothrombin Time Ratio 1.0 INR International Normalized Ratio 1.00 Activated Partial Thromboplast Time 34.8 Sec Sodium Level 149 mmol/L Potassium Level 4.0 mmol/L Chloride Level 108 mmol/L Carbon Dioxide Level 21 mmol/L Anion Gap 20 Blood Urea Nitrogen 25 mg/dl Creatinine 1.20 mg/dl Est Glomerular Filtrat Rate mL/min > 60 mL/min Glucose Level 204 mg/dl Calcium Level 10.7 mg/dl Total Bilirubin 1.3 mg/dl Direct Bilirubin 0.00 mg/dl Indirect Bilirubin 1.3 mg/dl Aspartate Amino Transf (AST/SGOT) 18 IU/L Alanine Aminotransferase (ALT/SGPT) 14 IU/L Alkaline Phosphatase 76 IU/L Troponin I < 0.012 ng/ml Total Protein 9.1 g/dl Albumin 5.2 g/dl Globulin 3.90 g/dl Albumin/Globulin Ratio 1.33 Current Medications Medications Dose Sig/Keren Start Time Status Last (Trade) Ordered Route PRN Stop Time Admin Dose Reason Admin Sodium 1,000 ml @ Q1H STAT 05/04/19 DC 05/04/19 Chloride 1,000 mls/hr IV 01:26 01:48 05/04/19 02:25 Pantoprazole 100 ml @ ONCE STAT 05/04/19 DC 05/04/19 80 mg/Sodium 400 mls/hr IVPB 01:26 02:41 Chloride 05/04/19 01:40 Pantoprazole 100 ml @ ONCE STAT 05/04/19 80 mg/Sodium 10 mls/hr IV 01:26 Chloride 05/04/19 11:25 Octreotide 26 ml @ Q16M STAT 05/04/19 DC Acetate 50 100 mls/hr IVPB 01:26 mcg/ Sodium 05/04/19 01:41 Chloride Octreotide 50 ml @ 5 ONCE STAT 05/04/19 Acetate 500 mls/hr IV 01:26 mcg/ Sodium 05/04/19 11:25 Chloride Ondansetron 4 mg ONCE STAT 05/04/19 DC 05/04/19 HCl (Zofran IV 01:26 01:48 Inj) 05/04/19 01:28 Lorazepam 1 mg ONCE ONCE 05/04/19 DC 05/04/19 (Ativan) IV 02:00 01:48 05/04/19 02:01 1 mg ONCE STAT 05/04/19 DC 05/04/19 Hydromorphone IV 02:05 02:32 HCl 05/04/19 02:06 (Dilaudid) Ondansetron 4 mg ONCE STAT 05/04/19 DC 05/04/19 HCl (Zofran IV 02:05 02:32 Inj) 05/04/19 02:06 Procedures/MDM Medical decision m[age]-year-old male with hematemesis. At this point clinically stable, however will need to be admitted further evaluation and management. Dr. Rdz is on-call for this patient's primary care physician. Dr. Carl is can accept patient to service Departure Diagnosis: Primary Impression: Hematemesis Nausea presence: with nausea Qualified Codes: K92.0 - Hematemesis Condition: Serious ALYSIA AGARWAL May 04, 2019 03:28
[2019-05-04] MEDS ORDERED: ACETAMINOPHEN 325 MG TAB PO PRN (03:30)
[2019-05-04] MEDS ORDERED: ONDANSETRON 4 MG INJ IV PRN (03:30)
[2019-05-04] MEDS ORDERED: PSYL3.4P11 PO (04:13)
[2019-05-04 07:44] VITALS: BP 104/79; RESP 18
[2019-05-04] MEDS ORDERED: morphine 2 MG INJ IV PRN (08:30)
[2019-05-04] MEDS: D5W-0.45 NACL + KCL 20 MEQ 1,000 ML IV SCH ×2 (09:10→18:35)
[2019-05-04] MEDS: HYDROmorphONE 0.5 MG/0.5 ML SYG IV PRN ×2 (09:30→12:34)
[2019-05-04 09:34] VITALS: Ht 167.6 cm; Wt 67.0 kg
[2019-05-04] MEDS: ONDANSETRON 4 MG INJ IV PRN (12:37)
--- NOTE | 2019-05-04 12:43 | HP ---
Date/Time of Note Date/Time of Note DATE: 05/04/19 TIME: 12:32 Assessment/Plan VTE Prophylaxis Risk score (from Ns)>0 risk: 1 SCD applied (from Ns): Yes Pharmacological prophylaxis: NA/contraindicated Pharm contraindication: bleeding Lines/Catheters IV Catheter Type (from Nrsg): Peripheral IV Assessment/Plan Assessment/Plan -Nausea, and hematemesis, continue IV fluids, IV Protonix, Zofran as needed for nausea. Continue to monitor hemoglobin and hematocrit. Dr. Mayfield is asked to see patient in gastroenterology consultation. -Abdominal pain, continue Dilaudid as needed for pain. -History of gastritis with bleeding and duodenitis -History of irritable bowel syndrome Further recommendations based on clinical course. Plan of care discussed with Dr. Serna. Result Diagram: 05/04/1913405/04/19134 Results 24hrs Laboratory Tests Test 05/04/19 01:35 White Blood Count 14.7 #H Red Blood Count 5.23 # Hemoglobin 16.7 # Hematocrit 48.5 # Mean Corpuscular Volume 92.7 Mean Corpuscular Hemoglobin 31.9 Mean Corpuscular Hemoglobin Concent 34.4 Red Cell Distribution Width 12.9 Platelet Count 260 Mean Platelet Volume 9.0 Immature Granulocytes % 0.400 Neutrophils % 83.7 H Lymphocytes % 10.9 L Monocytes % 4.7 Eosinophils % 0.0 Basophils % 0.3 Nucleated Red Blood Cells % 0.0 Immature Granulocytes # 0.060 H Neutrophils # 12.3 H Lymphocytes # 1.6 Monocytes # 0.7 Eosinophils # 0.0 Basophils # 0.0 Nucleated Red Blood Cells # 0.0 Prothrombin Time 13.3 Prothrombin Time Ratio 1.0 INR International Normalized Ratio 1.00 Activated Partial Thromboplast Time 34.8 Sodium Level 149 H Potassium Level 4.0 Chloride Level 108 Carbon Dioxide Level 21 Anion Gap 20 H Blood Urea Nitrogen 25 H Creatinine 1.20 Est Glomerular Filtrat Rate mL/min > 60 Glucose Level 204 Calcium Level 10.7 H Total Bilirubin 1.3 Direct Bilirubin 0.00 Indirect Bilirubin 1.3 H Aspartate Amino Transf (AST/SGOT) 18 Alanine Aminotransferase (ALT/SGPT) 14 Alkaline Phosphatase 76 Troponin I < 0.012 Total Protein 9.1 H Albumin 5.2 H Globulin 3.90 H Albumin/Globulin Ratio 1.33 HPI/ROS Admit Date/Time Admit Date/Time May 04, 2019 at 03:27 Hx of Present Illness Patient is 44-year-old gentleman known to me from previous admission. Patient with history of IBS and gastritis. Patient was hospitalized 4 months ago and underwent EGD with notion of gastritis with bleeding and duodenitis, with gastric biopsies negative for malignancy. Patient stated that he has been compliant with his medication. Patient follows with Dr. Mayfield as an outpatient and was waiting for insurance authorization for colonoscopy. Presented to the emergency room with complaints of nausea vomiting after patient ate at a restaurant the day before. Patient's complaints of significant lower abdominal pain, bilious and bloody emesis as well as diarrhea. Patient denies shortness of breath, denies fever, chills. Patient was started on Protonix and IV fluids and admitted for further evaluation and management to telemetry floor. ROS 12 point review of system is negative except for what mentioned in HPI PMH/Family/Social Past Medical History Medical History: other (Irritable bowel syndrome, gastritis) Medications Current Medications Potassium Chloride/Dextrose/ Sod Cl 1,000 ml @ 100 mls/hr Q10H IV Last administered on 05/04/19at 09:10; Admin Dose 100 MLS/HR; Start 05/04/19 at 08:30; Stop 05/06/19 at 15:00 Pantoprazole (Protonix Iv) 40 mg BID@06,18 IV ; Start 05/04/19 at 18:00 Ondansetron HCl (Zofran Inj) 4 mg Q6H PRN IV NAUSEA AND/OR VOMITING; Start 05/04/19 at 08:30 Morphine Sulfate (morphine) 2 mg Q3H PRN IV SEVERE PAIN LEVEL 7-10; Start 05/04/19 at 08:30 Hydromorphone HCl (Dilaudid) 0.5 mg Q3H PRN IV SEVERE PAIN LEVEL 7-10 Last administered on 05/04/19at 09:30; Admin Dose 0.5 MG; Start 05/04/19 at 09:30 Coded Allergies: No Known Allergy (Unverified , 12/25/18) Past Surgical History Past Surgical Hx: endoscopy Family History Significant Family History: other (Hypertension and diabetes in patient's mothe r) Social History Alcohol Use: none Smoking Status: Never smoker Drug Use: none Exam/Review of Systems Vital Signs Vitals Vital Signs Date Temp Pulse Resp B/P (MAP) Pulse Ox O2 O2 Flow FiO2 Time Delivery Rate 05/04/19 98.0 18 104/79 96 Room Air 07:44 (87) 05/04/19 81 07:23 05/04/19 2.0 04:30 Exam Constitutional: alert, oriented Head: normocephalic Neck: supple Respiratory: clear to auscultation Cardiovascular: nl pulses Gastrointestinal: soft, tender Musculoskeletal: nl extremities to inspection Extremities: normal pulses Neurological: nl mental status Skin: nl PADMINI Cornejo May 04, 2019 12:43
--- NOTE | 2019-05-04 13:40 | CONS ---
Assessment/Plan Assessment/Plan Hospital Course (Demo Recall) 44 yo male presents with lower abdominal pain, nausea and vomiting 1. Nausea and vomiting 2. Lower abdominal pain bilaterally 3. Hematochezia with sore rectum likely due to hemorrhoids 4. Irritable bowel syndrome 5. Chronic gastritis Plan: KUB Clear liquid diet. Amitiza 24 mcg po bid Reglan 5 mg IV q 6 hours prn nausea Prn anti emetics (Zofran) Pain management, feels 0.5 mg dilaudid does not help and usually has 1 mg dilaudid for pain. Pt educated that this can worsen constipation which he realizes but states reglan helps him with the constipation. Colonoscopy tomorrow, bowel prep, npo p mn, am labs, no anti coagulant Pt examined and plan of care discussed with Dr. Mayfield Consultation Date/Type/Reason Admit Date/Time May 04, 2019 at 03:27 Date/Time of Note DATE: 05/04/19 TIME: 13:36 Hx of Present Illness 44 yo male with h/o IBS and gastritis presents nausea and vomiting, . He also c/o lower abdominal pain.. No melena or hematochezia. Pt has been admitted multiple times over last two years with abdominal pain and hematemesis. Last EGD done 12/[address] Mayfield found pt to have chronic gastritis. CT scan done at the time found inflammation of terminal ileum. Pt was waiting on insurance approval to have outpatient colonoscopy with Dr. Mayfield. WBc are elevated 14.7. HH wnl, 16.7/48.5. Indirect bilirubin elevated 1.3 with rest of LFTs wnl. BUN 25. Pt was given protonix bolus and octreotide was ordered although never given. Once transferred to telemetry pt was protonix bid. Pt states vomiting began Friday after eating out at a restaurant, chorizo and eggs, for his birthday. He did not eat anything Friday and vomiting was controlled. Yesterday he had a [employer] sandwich and vomiting began again and he could not stop. Pt states emesis was not bloody but red in color due to red Gatorade he had. His HH is wnl. Pt does c/o crampy lower abdominal pain. He usually cycles between constipation and diarrhea but for last few weeks he has been constipated and can not remember when his last good bm was. He states he has small amount of stool when he goes, no melena but does have blood on toilet paper and some drops of blood in toilet due to hemorrhoids. He c/o a sore rectum as well. He denies fevers or chills or international traveling. Denies SOB or CP. NO dysuria or flank pain. Past Medical History Medical History: other (Irritable bowel syndrome, gastritis) Home Meds Active Scripts Ondansetron (Ondansetron Odt) 4 Mg Tab.rapdis, 4 MG PO Q6H PRN for NAUSEA AND/OR VOMITING, #20 TAB Prov:KIERAN VÁSQUEZ MD 06/16/17 Reported Medications Psyllium Husk (with Sugar) (Metamucil Packet) 3.4 Gm Powd.pack, 3.4 GM PO DAILY 05/04/19 Lorazepam* (Lorazepam*) 1 Mg Tablet, 1 MG PO BID PRN for ANXIETY, #30 TAB 12/25/18 Metoclopramide Hcl* (Metoclopramide Hcl*) 10 Mg Tablet, 10 MG PO AC MEALS for 4 Days, #15 12/25/18 Dicyclomine HCl (Dicyclomine HCl) 20 Mg Tablet, 20 MG PO QID 12/25/18 Hyoscyamine Sulfate* (Hyoscyamine Sulfate*) 0.125 Mg Tab.subl, 0.125 MG SL Q4H, TAB 06/16/17 Pantoprazole* (Pantoprazole*) 40 Mg Tablet.dr, 40 MG PO AC BREAKFAST, TAB 03/26/17 Sucralfate* (Carafate*) 1 Gm Tab, 1 GM PO AC MEALS AND BEDTIME, TAB 03/26/17 Medications Current Medications Potassium Chloride/Dextrose/ Sod Cl 1,000 ml @ 100 mls/hr Q10H IV Last administered on 05/04/19at 09:10; Admin Dose 100 MLS/HR; Start 05/04/19 at 08:30; Stop 05/06/19 at 15:00 Pantoprazole (Protonix Iv) 40 mg BID@06,18 IV ; Start 05/04/19 at 18:00 Ondansetron HCl (Zofran Inj) 4 mg Q6H PRN IV NAUSEA AND/OR VOMITING Last administered on 05/04/19at 12:37; Admin Dose 4 MG; Start 05/04/19 at 08:30 Morphine Sulfate (morphine) 2 mg Q3H PRN IV SEVERE PAIN LEVEL 7-10; Start 05/04/19 at 08:30 Hydromorphone HCl (Dilaudid) 0.5 mg Q3H PRN IV SEVERE PAIN LEVEL 7-10 Last administered on 05/04/19at 12:34; Admin Dose 0.5 MG; Start 05/04/19 at 09:30 Allergies: Coded Allergies: No Known Allergy (Unverified , 12/25/18) Past Surgical History Past Surgical Hx: endoscopy Social History Alcohol Use: none Smoking Status: Never smoker Drug Use: none Exam/Review of Systems Exam Vitals Vital Signs Date Temp Pulse Resp B/P (MAP) Pulse Ox O2 O2 Flow FiO2 Time Delivery Rate 05/04/19 98.0 18 104/79 96 Room Air 07:44 (87) 05/04/19 81 07:23 05/04/19 2.0 04:30 Constitutional: alert, oriented Psych: no complaints Head: normocephalic Eyes: nl sclera, PERRL Respiratory: clear to auscultation Cardiovascular: regular rate and rhythm Gastrointestinal: soft, tender (TTP in lower abdomen bilaterally) Musculoskeletal: nl gait and stance Extremities: normal pulses Neurological: nl mental status Results Result Diagram: 05/04/19 0135 05/04/19 0135 Results 24hrs Laboratory Tests Test 05/04/19 01:35 White Blood Count 14.7 #H Red Blood Count 5.23 # Hemoglobin 16.7 # Hematocrit 48.5 # Mean Corpuscular Volume 92.7 Mean Corpuscular Hemoglobin 31.9 Mean Corpuscular Hemoglobin Concent 34.4 Red Cell Distribution Width 12.9 Platelet Count 260 Mean Platelet Volume 9.0 Immature Granulocytes % 0.400 Neutrophils % 83.7 H Lymphocytes % 10.9 L Monocytes % 4.7 Eosinophils % 0.0 Basophils % 0.3 Nucleated Red Blood Cells % 0.0 Immature Granulocytes # 0.060 H Neutrophils # 12.3 H Lymphocytes # 1.6 Monocytes # 0.7 Eosinophils # 0.0 Basophils # 0.0 Nucleated Red Blood Cells # 0.0 Prothrombin Time 13.3 Prothrombin Time Ratio 1.0 INR International Normalized Ratio 1.00 Activated Partial Thromboplast Time 34.8 Sodium Level 149 H Potassium Level 4.0 Chloride Level 108 Carbon Dioxide Level 21 Anion Gap 20 H Blood Urea Nitrogen 25 H Creatinine 1.20 Est Glomerular Filtrat Rate mL/min > 60 Glucose Level 204 Calcium Level 10.7 H Total Bilirubin 1.3 Direct Bilirubin 0.00 Indirect Bilirubin 1.3 H Aspartate Amino Transf (AST/SGOT) 18 Alanine Aminotransferase (ALT/SGPT) 14 Alkaline Phosphatase 76 Troponin I < 0.012 Total Protein 9.1 H Albumin 5.2 H Globulin 3.90 H Albumin/Globulin Ratio 1.33 Medications Medication Current Medications Potassium Chloride/Dextrose/ Sod Cl 1,000 ml @ 100 mls/hr Q10H IV Last administered on 05/04/19 09:10; Admin Dose 100 MLS/HR; Start 05/04/19 at 08:30; Stop 05/06/19 at 15:00 Pantoprazole (Protonix Iv) 40 mg BID@06,18 IV ; Start 05/04/19 at 18:00 Ondansetron HCl (Zofran Inj) 4 mg Q6H PRN IV NAUSEA AND/OR VOMITING Last administered on 05/04/19at 12:37; Admin Dose 4 MG; Start 05/04/19 at 08:30 Morphine Sulfate (morphine) 2 mg Q3H PRN IV SEVERE PAIN LEVEL 7-10; Start 05/04/19 at 08:30 Hydromorphone HCl (Dilaudid) 0.5 mg Q3H PRN IV SEVERE PAIN LEVEL 7-10 Last administered on 05/04/19at 12:34; Admin Dose 0.5 MG; Start 05/04/19 at 09:30 TAMMIE MARSHALL May 04, 2019 13:40
[2019-05-04] MEDS ORDERED: METOCLOPRAMIDE 10 MG INJ IV PRN (14:30)
[2019-05-04 15:01] VITALS: BP 119/70; PULSE 87; RESP 18
[2019-05-04] MEDS: HYDROmorphONE 1 MG/ML SYG IV PRN ×2 (15:39→19:44)
[2019-05-04] MEDS ORDERED: BISACODYL (EC) 5 MG TAB PO ONE ×2 (17:00→20:00)
[2019-05-04] MEDS ORDERED: PEG/ELECTROLYTES 4L BTL PO ONE ×2 (17:00→20:00)
[2019-05-04] MEDS: PANTOPRAZOLE 40 MG INJ IV SCH (17:58)
[2019-05-04 19:31] VITALS: BP 120/85; PULSE 78; RESP 16
[2019-05-04] MEDS: LUBIPROSTONE 24 MCG CAP PO SCH (20:42)
[2019-05-05] VITALS (14 sets, daily range): BP systolic 109–132; BP diastolic 74–87; PULSE 58–89; RESP 11–20
[2019-05-05] MEDS: HYDROmorphONE 1 MG/ML SYG IV PRN ×6 (01:18→21:47)
[2019-05-05] MEDS: D5W-0.45 NACL + KCL 20 MEQ 1,000 ML IV SCH ×2 (04:45→17:13)
[2019-05-05] MEDS: PANTOPRAZOLE 40 MG INJ IV SCH ×2 (06:28→17:13)
[2019-05-05] MEDS: ONDANSETRON 4 MG INJ IV PRN ×2 (06:28→14:14)
[2019-05-05] MEDS: LUBIPROSTONE 24 MCG CAP PO SCH ×2 (08:46→20:38)
[2019-05-05] MEDS ORDERED: LIDOCAINE 2% (SDV) 5 ML INJ ONE (12:06)
[2019-05-05] MEDS ORDERED: PROPOFOL 200 MG INJ ONE (12:06)
--- NOTE | 2019-05-05 12:10 | PREAC ---
Date/Time of Note Date/Time of Note DATE: 05/05/19 TIME: 12:09 Anesthesia Eval and Record Evaluation Time Pre-Procedure Interview DATE: 05/05/19 TIME: 12:09 Age 44 Sex male NPO: 8 hrs Preoperative diagnosis ABD PAIN, IBS Planned procedure COLONOSCOPY Past Medical History Past Medical History: Includes GI: Other (IBS) Surgery & Anesthesia Issues No known issue Meds Anticoagulation: No Beta Shandra within 24 hr: No Reason Beta Shandra not given: Pt. not on B-Shandra Active Scripts Ondansetron (Ondansetron Odt) 4 Mg Tab.rapdis, 4 MG PO Q6H PRN for NAUSEA AND/OR VOMITING, #20 TAB Prov:KIERAN VÁSQUEZ MD 06/16/17 Reported Medications Psyllium Husk (with Sugar) (Metamucil Packet) 3.4 Gm Powd.pack, 3.4 GM PO DAILY 05/04/19 Lorazepam* (Lorazepam*) 1 Mg Tablet, 1 MG PO BID PRN for ANXIETY, #30 TAB 12/25/18 Metoclopramide Hcl* (Metoclopramide Hcl*) 10 Mg Tablet, 10 MG PO AC MEALS for 4 Days, #15 12/25/18 Dicyclomine HCl (Dicyclomine HCl) 20 Mg Tablet, 20 MG PO QID 12/25/18 Hyoscyamine Sulfate* (Hyoscyamine Sulfate*) 0.125 Mg Tab.subl, 0.125 MG SL Q4H, TAB 06/16/17 Pantoprazole* (Pantoprazole*) 40 Mg Tablet.dr, 40 MG PO AC BREAKFAST, TAB 03/26/17 Sucralfate* (Carafate*) 1 Gm Tab, 1 GM PO AC MEALS AND BEDTIME, TAB 03/26/17 Current Medications Potassium Chloride/Dextrose/ Sod Cl 1,000 ml @ 100 mls/hr Q10H IV Last administered on 05/05/19at 04:45; Admin Dose 100 MLS/HR; Start 05/04/19 at 08:30; Stop 05/06/19 at 15:00 Pantoprazole (Protonix Iv) 40 mg BID@06,18 IV Last administered on 05/05/19at 06:28; Admin Dose 40 MG; Start 05/04/19 at 18:00 Ondansetron HCl (Zofran Inj) 4 mg Q6H PRN IV NAUSEA AND/OR VOMITING Last administered on 05/05/19 06:28; Admin Dose 4 MG; Start 05/04/19 at 08:30 Metoclopramide HCl (Reglan) 5 mg Q6 PRN IV nausea Last administered on 05/04/19 14:29; Admin Dose 5 MG; Start 05/04/19 at 14:30 Lubiprostone (Amitiza) 24 mcg BID PO Last administered on 05/04/19at 20:42; Admin Dose 24 MCG; Start 05/04/19 at 21:00 Hydromorphone HCl (Dilaudid) 1 mg Q4H PRN IV SEVERE PAIN LEVEL 7-10 Last administered on 05/05/19 08:41; Admin Dose 1 MG; Start 05/04/19 at 15:00 Meds reviewed: Yes Allergies Coded Allergies: No Known Allergy (Unverified , 12/25/18) Allergies Reviewed: Yes Labs/Studies Labs Reviewed: Reviewed by anesthesiologist Result Diagram: 05/05/19 0459 05/05/19 0459 Laboratory Tests 05/05/19 04:59 test: N/A Pre-procedure Exam Last vitals Vital Signs Date Temp Pulse Resp B/P (MAP) Pulse Ox O2 O2 Flow FiO2 Time Delivery Rate 05/05/19 97.9 73 18 121/74 100 Room Air 08:30 (90) Nasal Cannula 05/05/19 2.0 01:30 Airway: Adequate mouth opening, Adequate thyromental dist Mallampati: Mallampati II Teeth: Normal Lung: Normal Heart: Normal ASA Physical Status ASA physical status: 2 Emergency: None Planned Anesthetic General/MAC: MAC, TIVA Planned Pain Management Local by surgeon Pre-operative Attestations Prior to commencing anesthesia and surgery, the patient was re-evaluated, there was verification of: *The patient's identity *The results of appropriate recent lab work and preoperative vital signs *The above evaluation not changing prior to induction *Anesthetic plan, risk benefits, alternative and complications discussed with patient/family; questions answered; patient/family understands, accepts and wishes to proceed. JAMIE LEWIS May 05, 2019 12:10
--- NOTE | 2019-05-05 18:19 | PN ---
Date/Time of Note Date/Time of Note DATE: 05/05/19 TIME: 18:18 Assessment/Plan VTE Prophylaxis Risk score (from Nsg)>0 risk: 3 SCD applied (from Nsg): Yes Lines/Catheters IV Catheter Type (from Nrsg): Peripheral IV Assessment/Plan Hospital Course Patient is status post colonoscopy today currently resting comfortably, abdominal pain is well controlled with Dilaudid, no nausea vomiting reported per RN. Assessment/Plan -Nausea, and hematemesis, continue IV fluids, IV Protonix, Zofran as needed for nausea. Continue to monitor hemoglobin and hematocrit. Dr. Mayfield is asked to see patient in gastroenterology consultation. -Abdominal pain, continue Dilaudid as needed for pain. -History of gastritis with bleeding and duodenitis -History of irritable bowel syndrome Further recommendations based on clinical course. Plan of care discussed with Dr. Serna. Result Diagram: 05/05/19 0459 05/05/19 0459 Results 24hrs Laboratory Tests Test 05/05/19 04:59 White Blood Count 11.6 #H Red Blood Count 4.60 L Hemoglobin 14.7 Hematocrit 44.1 Mean Corpuscular Volume 95.9 Mean Corpuscular Hemoglobin 32.0 Mean Corpuscular Hemoglobin Concent 33.3 Red Cell Distribution Width 13.1 Platelet Count 195 Mean Platelet Volume 9.3 Immature Granulocytes % 0.300 Neutrophils % 58.3 Lymphocytes % 30.1 Monocytes % 9.8 Eosinophils % 1.1 Basophils % 0.4 Nucleated Red Blood Cells % 0.0 Immature Granulocytes # 0.040 H Neutrophils # 6.8 Lymphocytes # 3.5 H Monocytes # 1.1 H Eosinophils # 0.1 Basophils # 0.1 Nucleated Red Blood Cells # 0.0 Prothrombin Time 13.2 Prothrombin Time Ratio 1.0 INR International Normalized Ratio 0.99 Activated Partial Thromboplast Time 31.0 Sodium Level 146 H Potassium Level 3.8 Chloride Level 107 Carbon Dioxide Level 28 Anion Gap 11 # Blood Urea Nitrogen 15 # Creatinine 0.71 Est Glomerular Filtrat Rate mL/min > 60 Glucose Level 109 # Calcium Level 9.3 Exam/Review of Systems Exam Vitals Vital Signs Date Temp Pulse Resp B/P (MAP) Pulse Ox O2 O2 Flow FiO2 Time Delivery Rate 05/05/19 68 20 111/79 100 Nasal 13:13 (90) Cannula 05/05/19 3.0 12:58 6/26/19 98.1 12:53 Intake and Output 05/04/19 05/04/19 05/05/19 1515:00 23:00 07:00 IntakeIntake Total 3700 ml 3950 ml OutputOutput Total 600 ml BalanceBalance 3700 ml 3350 ml Results Results 24hrs Laboratory Tests Test 05/05/19 04:59 White Blood Count 11.6 #H Red Blood Count 4.60 L Hemoglobin 14.7 Hematocrit 44.1 Mean Corpuscular Volume 95.9 Mean Corpuscular Hemoglobin 32.0 Mean Corpuscular Hemoglobin Concent 33.3 Red Cell Distribution Width 13.1 Platelet Count 195 Mean Platelet Volume 9.3 Immature Granulocytes % 0.300 Neutrophils % 58.3 Lymphocytes % 30.1 Monocytes % 9.8 Eosinophils % 1.1 Basophils % 0.4 Nucleated Red Blood Cells % 0.0 Immature Granulocytes # 0.040 H Neutrophils # 6.8 Lymphocytes # 3.5 H Monocytes # 1.1 H Eosinophils # 0.1 Basophils # 0.1 Nucleated Red Blood Cells # 0.0 Prothrombin Time 13.2 Prothrombin Time Ratio 1.0 INR International Normalized Ratio 0.99 Activated Partial Thromboplast Time 31.0 Sodium Level 146 H Potassium Level 3.8 Chloride Level 107 Carbon Dioxide Level 28 Anion Gap 11 # Blood Urea Nitrogen 15 # Creatinine 0.71 Est Glomerular Filtrat Rate mL/min > 60 Glucose Level 109 # Calcium Level 9.3 Medications Medication Current Medications Potassium Chloride/Dextrose/ Sod Cl 1,000 ml @ 100 mls/hr Q10H IV Last administered on 05/05/19at 17:13; Admin Dose 100 MLS/HR; Start 05/04/19 at 08:30; Stop 05/06/19 at 15:00 Pantoprazole (Protonix Iv) 40 mg BID@06,18 IV Last administered on 05/05/19at 17:13; Admin Dose 40 MG; Start 05/04/19 at 18:00 Ondansetron HCl (Zofran Inj) 4 mg Q6H PRN IV NAUSEA AND/OR VOMITING Last adm inistered on 05/05/19at 14:14; Admin Dose 4 MG; Start 05/04/19 at 08:30 Metoclopramide HCl (Reglan) 5 mg Q6 PRN IV nausea Last administered on 05/04/19at 14:29; Admin Dose 5 MG; Start 05/04/19 at 14:30 Lubiprostone (Amitiza) 24 mcg BID PO Last administered on 05/04/19 20:42; Admin Dose 24 MCG; Start 05/04/19 at 21:00 Hydromorphone HCl (Dilaudid) 1 mg Q4H PRN IV SEVERE PAIN LEVEL 7-10 Last admini stered on 05/05/19at 17:44; Admin Dose 1 MG; Start 05/04/19 at 15:00 PADMINI HERR May 05, 2019 18:19
[2019-05-05] MEDS: MESALAMINE (SR) 250 MG CAP PO SCH (21:16)
[2019-05-06 00:10] VITALS: BP 116/89; PULSE 83; RESP 20
[2019-05-06] MEDS: D5W-0.45 NACL + KCL 20 MEQ 1,000 ML IV SCH ×3 (00:30→14:16)
[2019-05-06] MEDS: HYDROmorphONE 1 MG/ML SYG IV PRN ×5 (01:56→18:27)
[2019-05-06] MEDS: PANTOPRAZOLE 40 MG INJ IV SCH ×2 (05:39→17:37)
[2019-05-06 07:32] VITALS: BP 115/80; PULSE 62; RESP 18
[2019-05-06] MEDS: MESALAMINE (SR) 250 MG CAP PO SCH ×4 (08:41→21:05)
[2019-05-06] MEDS: LUBIPROSTONE 24 MCG CAP PO SCH ×2 (08:41→21:05)
--- NOTE | 2019-05-06 11:43 | CONS ---
Assessment/Plan Assessment/Plan Assessment/Plan (Daily) 1. Nausea and vomiting 2. Lower abdominal pain bilaterally 3. Hematochezia with sore rectum likely due to hemorrhoids 4. Irritable bowel syndrome 5. Chronic gastritis 6. Multiple terminal ileal ulcers Crohn's disease needs to be ruled out Plan Pentasa Waiting for the biopsy report Patient needs capsule endoscopy in the office IBD serology Patient also may have element of IBS along with IBD Consultation Date/Type/Reason Admit Date/Time May 04, 2019 at 03:27 Initial Consult Date Date/Time of Note DATE: 05/06/19 TIME: 11:42 24 HR Interval Summary Free Text/Dictation Complaints of abdominal pain. No GI bleeding no diarrhea Exam/Review of Systems Exam Vitals Vital Signs Date Temp Pulse Resp B/P (MAP) Pulse Ox O2 O2 Flow FiO2 Time Delivery Rate 05/06/19 98.2 62 18 115/80 100 07:32 (92) 05/05/19 Nasal 13:45 Cannula 05/05/19 3.0 12:58 Intake and Output 05/05/19 05/05/19 05/06/19 1515:00 23:00 07:00 IntakeIntake Total 1000 ml 1300 ml OutputOutput Total 250 ml 200 ml BalanceBalance 750 ml 1100 ml Constitutional: alert, oriented, well developed Psych: no complaints, nl mood/affect Head: normocephalic, atraumatic Eyes: nl conjunctiva, EOMI, nl lids, nl sclera, PERRL ENMT: nl external ears & nose, nl lips & teeth, nl nasal mucosa & septum Neck: supple, non-tender Respiratory: clear to auscultation, normal air movement Cardiovascular: regular rate and rhythm, nl pulses Gastrointestinal: soft, nl liver, spleen, non-tender Musculoskeletal: nl extremities to inspection, nl gait and stance Extremities: normal pulses Neurological: CONSULTING SALES MANAGER II-XII intact, nl mental status, nl speech, nl strength Skin: nl turgor; No rash or lesions Lymph: nl lymph nodes Results Result Diagram: 05/05/19 0459 05/05/19 0459 Medications Medication Current Medications Potassium Chloride/Dextrose/ Sod Cl 1,000 ml @ 100 mls/hr Q10H IV Last administered on 05/06/19at 01:59; Admin Dose 100 MLS/HR; Start 05/04/19 at 08:30; Stop 05/06/19 at 15:00 Pantoprazole (Protonix Iv) 40 mg BID@06,18 IV Last administered on 05/06/19 05:39; Admin Dose 40 MG; Start 05/04/19 at 18:00 Ondansetron HCl (Zofran Inj) 4 mg Q6H PRN IV NAUSEA AND/OR VOMITING Last administered on 05/05/19 14:14; Admin Dose 4 MG; Start 05/04/19 at 08:30 Metoclopramide HCl (Reglan) 5 mg Q6 PRN IV nausea Last administered on 05/04/19 t 14:29; Admin Dose 5 MG; Start 05/04/19 at 14:30 Lubiprostone (Amitiza) 24 mcg BID PO Last administered on 05/06/19 08:41; Admin Dose 24 MCG; Start 05/04/19 at 21:00 Hydromorphone HCl (Dilaudid) 1 mg Q4H PRN IV SEVERE PAIN LEVEL 7-10 Last administered on 05/06/19 09:59; Admin Dose 1 MG; Start 05/04/19 at 15:00 Mesalamine (Pentasa) 1,000 mg QID PO Last administered on 05/06/19 08:41; Admin Dose 1,000 MG; Start 05/05/19 at 21:00 PIETER WEBBER MD May 06, 2019 11:43
[2019-05-06] MEDS: ONDANSETRON 4 MG INJ IV PRN (12:22)
--- NOTE | 2019-05-06 12:39 | PN ---
Date/Time of Note Date/Time of Note DATE: 05/06/19 TIME: 12:33 Assessment/Plan VTE Prophylaxis Risk score (from Ns)>0 risk: 3 SCD applied (from [facility]): Yes Pharmacological prophylaxis: NA/contraindicated Pharm contraindication: bleeding Lines/Catheters IV Catheter Type (from [facility]): Peripheral IV Urinary Cath still in place: No Assessment/Plan Hospital Course Patient is status post colonoscopy today currently resting comfortably, abdominal pain is well controlled with Dilaudid, no nausea vomiting reported per RN. Assessment/Plan -Nausea, and hematemesis, continue IV fluids, IV Protonix, Zofran as needed for nausea. Continue to monitor hemoglobin and hematocrit. Dr. Mayfield is following in gastroenterology consultation. -Abdominal pain, continue Dilaudid as needed for pain. -History of gastritis with bleeding and duodenitis -History of irritable bowel syndrome Further recommendations based on clinical course. Plan of care discussed with Dr. Serna. Result Diagram: 05/05/1945805/05/19458 Exam/Review of Systems Exam Vitals Vital Signs Date Temp Pulse Resp B/P (MAP) Pulse Ox O2 O2 Flow FiO2 Time Delivery Rate 05/06/19 98.2 62 18 115/80 100 07:32 (92) 05/05/19 Nasal 13:45 Cannula 05/05/19 3.0 12:58 Intake and Output 05/05/19 05/05/19 05/06/19 1515:00 23:00 07:00 IntakeIntake Total 1000 ml 1300 ml OutputOutput Total 250 ml 200 ml BalanceBalance 750 ml 1100 ml Exam Constitutional: alert, oriented Respiratory: clear to auscultation Cardiovascular: nl pulses Gastrointestinal: soft, tender Musculoskeletal: nl extremities to inspection Extremities: normal pulses Neurological: nl mental status Skin: nl turgor Medications Medication Current Medications Potassium Chloride/Dextrose/ Sod Cl 1,000 ml @ 100 mls/hr Q10H IV Last administered on 05/06/19at 01:59; Admin Dose 100 MLS/HR; Start 05/04/19 at 08:30; Stop 05/06/19 at 15:00 Pantoprazole (Protonix Iv) 40 mg BID@06,18 IV Last administered on 05/06/19at 05:39; Admin Dose 40 MG; Start 05/04/19 at 18:00 Ondansetron HCl (Zofran Inj) 4 mg Q6H PRN IV NAUSEA AND/OR VOMITING Last administered on 05/06/19 12:22; Admin Dose 4 MG; Start 05/04/19 at 08:30 Metoclopramide HCl (Reglan) 5 mg Q6 PRN IV nausea Last administered on 05/04/19 14:29; Admin Dose 5 MG; Start 05/04/19 at 14:30 Lubiprostone (Amitiza) 24 mcg BID PO Last administered on 05/06/19 08:41; Admin Dose 24 MCG; Start 05/04/19 at 21:00 Hydromorphone HCl (Dilaudid) 1 mg Q4H PRN IV SEVERE PAIN LEVEL 7-10 Last administered on 05/06/19 09:59; Admin Dose 1 MG; Start 05/04/19 at 15:00 Mesalamine (Pentasa) 1,000 mg QID PO Last administered on 05/06/19 12:25; Admin Dose 1,000 MG; Start 05/05/19 at 21:00 PADMINI HERR May 06, 2019 12:39
--- NOTE | 2019-05-06 12:44 | PN ---
Date/Time of Note Date/Time of Note DATE: 05/06/19 TIME: 12:40 Assessment/Plan VTE Prophylaxis Risk score (from Ns)>0 risk: 3 SCD applied (from Ns): Yes Pharmacological prophylaxis: NA/contraindicated Pharm contraindication: bleeding Lines/Catheters [facility] Peripheral IV Urinary Cath still in place: No Assessment/Plan Hospital Course Patient status post colonoscopy yesterday, complains of abdominal pain denies any nausea and vomiting, will progress diet as patient tolerates. Assessment/Plan -Status post colonoscopy with notion of multiple ulcers in the terminal ileum, Crohn's disease needs to be ruled out, rectal bleeding from external hemorrhoids. -Nausea, and hematemesis, continue IV fluids, IV Protonix, Zofran as needed for nausea. Continue to monitor hemoglobin and hematocrit. Dr. Mayfield is following in gastroenterology consultation. -Abdominal pain, continue Dilaudid as needed for pain. -History of gastritis with bleeding and duodenitis -History of irritable bowel syndrome Further recommendations based on clinical course. Plan of care discussed with Dr. Serna. Result Diagram: 05/05/19 0459 05/05/19 0459 Exam/Review of Systems Exam Vitals Vital Signs Date Temp Pulse Resp B/P (MAP) Pulse Ox O2 O2 Flow FiO2 Time Delivery Rate 05/06/19 98.2 62 18 115/80 100 07:32 (92) 05/05/19 Nasal 13:45 Cannula 05/05/19 3.0 12:58 Intake and Output 05/05/19 05/05/19 05/06/19 1515:00 23:00 07:00 IntakeIntake Total 1000 ml 1300 ml OutputOutput Total 250 ml 200 ml BalanceBalance 750 ml 1100 ml Exam Constitutional: alert, oriented Respiratory: clear to auscultation Cardiovascular: nl pulses Gastrointestinal: soft, tender Musculoskeletal: nl extremities to inspection Extremities: normal pulses Neurological: nl mental status Skin: nl turgor Medications Medication Current Medications Potassium Chloride/Dextrose/ Sod Cl 1,000 ml @ 100 mls/hr Q10H IV Last administered on 05/06/19at 01:59; Admin Dose 100 MLS/HR; Start 05/04/19 at 08:30; Stop 05/06/19 at 15:00 Pantoprazole (Protonix Iv) 40 mg BID@06,18 IV Last administered on 05/06/19 05:39; Admin Dose 40 MG; Start 05/04/19 at 18:00 Ondansetron HCl (Zofran Inj) 4 mg Q6H PRN IV NAUSEA AND/OR VOMITING Last administered on 05/06/19 12:22; Admin Dose 4 MG; Start 05/04/19 at 08:30 Metoclopramide HCl (Reglan) 5 mg Q6 PRN IV nausea Last administered on 05/04/19 14:29; Admin Dose 5 MG; Start 05/04/19 at 14:30 Lubiprostone (Amitiza) 24 mcg BID PO Last administered on 05/06/19 08:41; Admin Dose 24 MCG; Start 05/04/19 at 21:00 Hydromorphone HCl (Dilaudid) 1 mg Q4H PRN IV SEVERE PAIN LEVEL 7-10 Last administered on 05/06/19 09:59; Admin Dose 1 MG; Start 05/04/19 at 15:00 Mesalamine (Pentasa) 1,000 mg QID PO Last administered on 05/06/19 12:25; Admin Dose 1,000 MG; Start 05/05/19 at 21:00 PADMINI HERR May 06, 2019 12:44
[2019-05-06 14:25] VITALS: BP 136/89; PULSE 72; RESP 18
[2019-05-06 19:48] VITALS: BP 115/75; PULSE 74; RESP 20
[2019-05-06] MEDS: HYDROCODONE/APAP (5/325) TAB PO PRN (22:20)
[2019-05-07 01:50] VITALS: BP 118/71; PULSE 71; RESP 17
[2019-05-07] MEDS: PANTOPRAZOLE 40 MG INJ IV SCH (06:38)
[2019-05-07] MEDS: HYDROmorphONE 1 MG/ML SYG IV PRN (06:38)
--- NOTE | 2019-05-07 07:24 | PDOCDIS ---
Discharge Instructions CONDITION [id number] Patient Condition: [id number] Stable HOME CARE INSTRUCTIONS: [id number] Diet Instructions: [id number] ACTIVITY: [id number] Activity Restrictions: [id number] Rest between Activity Avoid heavy lifting Do not operate Machinery Do not operate Power Tool Avoid Heavy Housework [id number] Bathing Restrictions: [id number] Sponge Bath FOLLOW UP/APPOINTMENTS Follow-up Plan FU with GI as recommended DAVIDA PALAFOX May 07, 2019 07:24
[2019-05-07] MEDS ORDERED: MES250 PO (07:28)
[2019-05-07] MEDS ORDERED: HYDR-3601 PO (07:28)
--- NOTE | 2019-05-07 07:29 | DS ---
Date/Time of Note Date/Time of Note DATE: 05/07/19 TIME: 07:29 Discharge Summary Admission/Discharge Info Admit Date/Time May 04, 2019 at 03:27 Discharge Date/Time Discharge Diagnosis -Status post colonoscopy with notion of multiple ulcers in the terminal ileum - Crohn's disease to be ruled out - rectal bleeding from external hemorrhoids- none at present -Nausea, and hematemesis -Abdominal pain bilaterally- effective pain control -History of gastritis with bleeding and duodenitis -History of irritable bowel syndrome discussed with Dr. Serna. Patient Condition: Stable Hospital Course Mr. Linares is a 44-year-old male with history of IBS and gastritis. Patient was hospitalized 4 months ago and underwent EGD with notion of gastritis with bleeding and duodenitis, with gastric biopsies negative for malignancy. Patient follows with Dr. Mayfield as an outpatient and was waiting for insurance authorization for colonoscopy. Patient has been compliant with his medication. Patient was admitted with complaints of nausea vomiting after patient ate at a restaurant x1 day,significant lower abdominal pain, bilious and bloody emesis as well as diarrhea. No reported shortness of breath, denies fever, chills. Patient was admitted for further evaluation and management to telemetry floor. Patient is evaluate by Dr Mayfield; will continue Pentasa ; his biopsy report pending ; toFU in Dr Mayfield office for a capsule endoscopy. Constitutional: nad, vss, alert, oriented Respiratory: clear to auscultation bilaterally Cardiovascular: nl pulses Gastrointestinal: soft, tender, bs present Musculoskeletal: nl extremities to inspection Extremities: normal pulses Neurological: nl mental status Skin: nl turgor Patient discharged in a stable condition. Home Meds Active Scripts Mesalamine* (Pentasa*) 250 Mg Capsule.sa, 1000 MG PO QID, #30 Prov:DAVIDA PALAFOX 05/07/19 Hydrocodone Bit-Acetaminophen (Hydrocodone Bit-APAP) 5-325MG Tablet, 1 TAB PO Q6 PRN for MODERATE PAIN LEVEL 4-6, #24 TAB Prov:DAVIDA PALAFOX 05/07/19 Ondansetron (Ondansetron Odt) 4 Mg Tab.rapdis, 4 MG PO Q6H PRN for NAUSEA AND/OR VOMITING, #20 TAB Prov:KIERAN VÁSQUEZ MD 8/7/17 Reported Medications Psyllium Husk (with Sugar) (Metamucil Packet) 3.4 Gm Powd.pack, 3.4 GM PO DAILY 05/04/19 Lorazepam* (Lorazepam*) 1 Mg Tablet, 1 MG PO BID PRN for ANXIETY, #30 TAB 12/25/18 Metoclopramide Hcl* (Metoclopramide Hcl*) 10 Mg Tablet, 10 MG PO AC MEALS for 4 Days, #15 12/25/18 Pantoprazole* (Pantoprazole*) 40 Mg Tablet.dr, 40 MG PO AC BREAKFAST, TAB 03/26/17 Sucralfate* (Carafate*) 1 Gm Tab, 1 GM PO AC MEALS AND BEDTIME, TAB 03/26/17 Discontinued Reported Medications Dicyclomine HCl (Dicyclomine HCl) 20 Mg Tablet, 20 MG PO QID 12/25/18 Hyoscyamine Sulfate* (Hyoscyamine Sulfate*) 0.125 Mg Tab.subl, 0.125 MG SL Q4H, TAB 06/16/17 Follow-up Plan FU with GI as recommended Primary Care Provider [facility] Time spent on discharge: > 30 minutes DAVIDA PALAFOX May 07, 2019 07:29
[2019-05-07 07:30] VITALS: BP 121/68; PULSE 72; RESP 19
[2019-05-07] MEDS: LUBIPROSTONE 24 MCG CAP PO SCH (08:59)
[2019-05-07] MEDS: MESALAMINE (SR) 250 MG CAP PO SCH ×2 (08:59→13:02)
[2019-05-07] MEDS: HYDROCODONE/APAP (5/325) TAB PO PRN (10:45)
--- NOTE | 2019-05-07 11:25 | CONS ---
Assessment/Plan Assessment/Plan Assessment/Plan (Daily) Assessment/Plan Assessment/Plan (Daily) 1. Nausea and vomiting 2. Lower abdominal pain bilaterally 3. Hematochezia with sore rectum likely due to hemorrhoids 4. Irritable bowel syndrome 5. Chronic gastritis 6. Multiple terminal ileal ulcers Crohn's disease needs to be ruled out Plan Pentasa Waiting for the biopsy report Patient needs capsule endoscopy in the office IBD serology Patient also may have element of IBS along with IBD We will see him in the office for a capsule endoscopy. Will continue Pentasa. Consultation Date/Type/Reason Admit Date/Time May 04, 2019 at 03:27 Initial Consult Date Date/Time of Note DATE: 05/07/19 TIME: 11:24 24 HR Interval Summary Constitutional: improved Exam/Review of Systems Exam Vitals Vital Signs Date Temp Pulse Resp B/P (MAP) Pulse Ox O2 O2 Flow FiO2 Time Delivery Rate 05/07/19 98.2 72 19 121/68 98 07:30 (85) 05/05/19 Nasal 13:45 Cannula 05/05/19 3.0 12:58 Intake and Output 05/06/19 05/06/19 05/07/19 1515:00 23:00 07:00 IntakeIntake Total 600 ml 665 ml OutputOutput Total 600 ml BalanceBalance 0 ml 665 ml Constitutional: alert, oriented, well developed Psych: no complaints, nl mood/affect Head: normocephalic, atraumatic Eyes: nl conjunctiva, EOMI, nl lids, nl sclera, PERRL ENMT: nl external ears & nose, nl lips & teeth, nl nasal mucosa & septum Neck: supple, non-tender Respiratory: clear to auscultation, normal air movement Cardiovascular: regular rate and rhythm, nl pulses Gastrointestinal: soft, nl liver, spleen, non-tender Musculoskeletal: nl extremities to inspection, nl gait and stance Extremities: normal pulses Neurological: CLINIC OFFICE ASSISTANT II-XII intact, nl mental status, nl speech, nl strength Skin: nl turgor; No rash or lesions Lymph: nl lymph nodes Results Result Diagram: 05/05/19 0459 05/05/19 0459 Medications Medication Current Medications Pantoprazole (Protonix Iv) 40 mg BID@ IV Last administered on 05/07/19at 06:38; Admin Dose 40 MG; Start 05/04/19 at 18:00 Ondansetron HCl (Zofran Inj) 4 mg Q6H PRN IV NAUSEA AND/OR VOMITING Last administered on 05/06/19at 12:22; Admin Dose 4 MG; Start 05/04/19 at 08:30 Metoclopramide HCl (Reglan) 5 mg Q6 PRN IV nausea Last administered on 05/04/19 at 14:29; Admin Dose 5 MG; Start 05/04/19 at 14:30 Lubiprostone (Amitiza) 24 mcg BID PO Last administered on 05/07/19at 08:59; Admin Dose 24 MCG; Start 05/04/19 at 21:00 Hydromorphone HCl (Dilaudid) 1 mg Q4H PRN IV SEVERE PAIN LEVEL 7-10 Last administered on 05/07/19at 06:38; Admin Dose 1 MG; Start 05/04/19 at 15:00 Mesalamine (Pentasa) 1,000 mg QID PO Last administered on 05/07/19 08:59; Admin Dose 1,000 MG; Start 05/05/19 at 21:00 Acetaminophen/ Hydrocodone Bitart ([place] (5/325)) 1 tab Q4H PRN PO MODERATE PAIN LEVEL 4-6 Last administered on 05/07/19at 10:45; Admin Dose 1 TAB; Start 05/06/19 at 22:00 PIETER WEBBER MD May 07, 2019 11:25
[2019-05-07 15:16] VITALS: BP 118/62; PULSE 68; RESP 19
== END 2019-05-07 16:15 | disposition home or self-care (01) | DRG 394 ==
LOC: E/R 00:51 → MS1 03:27
PROVIDERS: ADMIT Internal Medicine; ATTEND Internal Medicine
PROC: 0DBB8ZX Excision of Ileum, Via Natural or Artificial Opening Endoscopic, Diagnostic (ICD-10-PCS; principal; 2019-05-05 13:00)
DX: K64.4 Residual hemorrhoidal skin tags (principal); K92.0 Hematemesis; K63.3 Ulcer of intestine; K62.5 Hemorrhage of anus and rectum; K29.50 Unspecified chronic gastritis without bleeding; Z87.19 Personal history of other diseases of the digestive system
CPT/HCPCS: 36415; 71045; 74018; 80048; 80053; 84484; 85025; 85610; 85730; 86850; 86900; 86901; 88305; 93005; 96374; 96375; 96376; C9113; J1170; J2060; J2354; J2405; J2765; J3480; J7030

== ENCOUNTER 2019-08-29 02:31 | Emergency (ER) | payer OTHER ==
[~2019-08-29] VITALS: Ht 170.2 cm; Wt 71.0 kg
[~2019-08-29 02:31] MED LIST changes: -DIC20 PO; +HYDR-3601 PO; +HYDR2TAB3 PO; +LUBI24CA7 PO; +MESA500C PO; -METO10TA3 PO; -ONDA4TAB14 PO; +OXYC-279 PO; +PRED20TA PO; +RANI150T5 PO; +SUCR1TAB35 PO; -SUCR1TAB56 PO
[2019-08-29 02:33] VITALS: Ht 170.2 cm; Wt 71.0 kg
[2019-08-29] MEDS ORDERED: HYDROmorphONE 1 MG/ML SYG IV STA (03:36)
[2019-08-29] MEDS ORDERED: ONDANSETRON 4 MG INJ IV STA (03:36)
[2019-08-29] MEDS ORDERED: FAMOTIDINE 20 MG INJ IV STA (03:36)
[2019-08-29] MEDS ORDERED: LACTATED RINGER'S 1,000 ML IV STA (03:36)
[2019-08-29] MEDS ORDERED: METHYLPREDNISOLONE 125 MG INJ IV ONE (04:00)
[2019-08-29] MEDS ORDERED: METHYLPREDNISOLONE 40 MG INJ IV ONE (04:00)
[2019-08-29] MEDS ORDERED: HYDROmorphONE 0.5 MG/0.5 ML SYG IV STA (04:19)
[2019-08-29 05:09] VITALS: BP 118/81; PULSE 67; RESP 16
== END 2019-08-29 05:09 | disposition home or self-care (01) ==
LOC: E/R 02:31
DX: R10.9 Unspecified abdominal pain (principal); K50.90 Crohn's disease, unspecified, without complications
CPT/HCPCS: 36415; 80053; 83690; 85025; 96374; 96375; 96376; J1170; J2405; J2920; J7120; Z7502; Z7610

== ENCOUNTER 2019-08-30 09:40 | Inpatient (IN) | payer OTHER ==
[~2019-08-30] VITALS: Ht 167.6 cm; Wt 68.0 kg
[2019-08-30] MEDS ORDERED: ONDANSETRON 4 MG INJ IV STA ×2 (10:04→10:45)
[2019-08-30] MEDS ORDERED: SOD CHLORIDE 0.9% 1,000 ML IV STA (10:04)
[2019-08-30] MEDS ORDERED: KETOROLAC 15 MG INJ IV STA (10:04)
[2019-08-30] MEDS ORDERED: DEXAMETHASONE 10 MG/ML 1 ML INJ IV ONE (10:30)
[2019-08-30] MEDS ORDERED: HALOPERIDOL 5 MG INJ IV ONE (10:30)
[2019-08-30] MEDS ORDERED: HYDROmorphONE 1 MG/ML SYG IV STA (10:45)
[2019-08-30] MEDS ORDERED: ONDANSETRON 4 MG INJ IV PRN (12:30)
[2019-08-30] MEDS ORDERED: ACETAMINOPHEN 325 MG TAB PO PRN (12:30)
[2019-08-30] MEDS: ONDANSETRON 4 MG INJ IV PRN ×2 (13:50→22:13)
[2019-08-30] MEDS: HYDROmorphONE 1 MG/ML SYG IV PRN ×3 (13:50→22:08)
[2019-08-30 14:00] VITALS: BP 92/59; PULSE 62; RESP 19
[2019-08-30 14:57] VITALS: Ht 167.6 cm; Wt 68.0 kg
[2019-08-30] MEDS ORDERED: IBUPROFEN 600 MG TAB PO PRN (15:00)
[2019-08-30] MEDS: MESALAMINE (SR) 250 MG CAP PO SCH ×2 (17:00→21:00)
[2019-08-30] MEDS: CHLORDIAZEPOXIDE/CLIDINIUM CAP PO SCH (17:30)
[2019-08-30] MEDS: D5W-0.45 NACL + KCL 20 MEQ 1,000 ML IV SCH (18:25)
[2019-08-30 20:00] VITALS: BP 109/65; PULSE 93; RESP 17
[2019-08-31 02:00] VITALS: BP 107/73; PULSE 65; RESP 17
[2019-08-31] MEDS: HYDROmorphONE 1 MG/ML SYG IV PRN ×6 (02:09→21:52)
[2019-08-31] MEDS: D5W-0.45 NACL + KCL 20 MEQ 1,000 ML IV SCH ×3 (05:49→17:53)
[2019-08-31] MEDS ORDERED: PANTOPRAZOLE 40 MG INJ IV SCH (06:00)
[2019-08-31] MEDS: CHLORDIAZEPOXIDE/CLIDINIUM CAP PO SCH ×3 (06:42→17:52)
[2019-08-31 07:56] VITALS: BP 98/56; PULSE 70; RESP 18
[2019-08-31] MEDS: MESALAMINE (SR) 250 MG CAP PO SCH ×4 (08:06→21:54)
[2019-08-31] MEDS: ONDANSETRON 4 MG INJ IV PRN ×3 (08:06→18:02)
[2019-08-31] MEDS: ENOXAPARIN 30 MG/0.3 ML SYG SC SCH (08:10)
[2019-08-31] MEDS: SUCRALFATE 1 GM TAB PO SCH ×4 (09:59→21:54)
[2019-08-31 14:00] VITALS: BP 111/69; PULSE 70; RESP 18
[2019-08-31] MEDS: PANTOPRAZOLE 40 MG INJ IV SCH (17:52)
[2019-08-31 20:27] VITALS: BP 114/80; PULSE 75; RESP 18
[2019-09-01] MEDS: ONDANSETRON 4 MG INJ IV PRN (01:54)
[2019-09-01] MEDS: HYDROmorphONE 1 MG/ML SYG IV PRN ×6 (01:54→21:44)
[2019-09-01 02:29] VITALS: BP 116/67; PULSE 66; RESP 20
[2019-09-01] MEDS: D5W-0.45 NACL + KCL 20 MEQ 1,000 ML IV SCH ×2 (03:58→14:12)
[2019-09-01] MEDS: PANTOPRAZOLE 40 MG INJ IV SCH ×2 (05:46→17:40)
[2019-09-01 07:56] VITALS: BP 119/82; PULSE 65; RESP 20
[2019-09-01] MEDS: MESALAMINE (SR) 250 MG CAP PO SCH ×4 (08:37→21:44)
[2019-09-01] MEDS: CHLORDIAZEPOXIDE/CLIDINIUM CAP PO SCH ×3 (08:37→17:39)
[2019-09-01] MEDS: SUCRALFATE 1 GM TAB PO SCH ×4 (08:37→21:44)
[2019-09-01] MEDS: ENOXAPARIN 30 MG/0.3 ML SYG SC SCH (08:37)
[2019-09-01 14:00] VITALS: BP 116/80; PULSE 68; RESP 20
[2019-09-01 20:00] VITALS: BP 113/84; PULSE 85; RESP 17
[2019-09-02] MEDS: D5W-0.45 NACL + KCL 20 MEQ 1,000 ML IV SCH ×3 (01:00→11:00)
[2019-09-02] MEDS: ZOLPIDEM 5 MG TAB PO PRN ×2 (01:00→22:53)
[2019-09-02] MEDS: HYDROmorphONE 1 MG/ML SYG IV PRN ×6 (01:39→22:53)
[2019-09-02 02:00] VITALS: BP 108/76; PULSE 90; RESP 18
[2019-09-02] MEDS: PANTOPRAZOLE 40 MG INJ IV SCH ×2 (06:40→17:17)
[2019-09-02] MEDS: CHLORDIAZEPOXIDE/CLIDINIUM CAP PO SCH ×3 (06:40→17:17)
[2019-09-02 08:18] VITALS: BP 118/64; PULSE 78; RESP 18
[2019-09-02] MEDS: MESALAMINE (SR) 250 MG CAP PO SCH ×4 (09:10→21:57)
[2019-09-02] MEDS: SUCRALFATE 1 GM TAB PO SCH ×4 (09:10→21:57)
[2019-09-02] MEDS: ENOXAPARIN 30 MG/0.3 ML SYG SC SCH (09:11)
[2019-09-02 14:55] VITALS: BP 116/60; PULSE 76; RESP 18
[2019-09-02 20:15] VITALS: BP 120/79; PULSE 84; RESP 17
[2019-09-02] MEDS: ONDANSETRON 4 MG INJ IV PRN (22:53)
[2019-09-03 02:13] VITALS: BP 107/67; PULSE 80; RESP 18
[2019-09-03] MEDS: HYDROmorphONE 1 MG/ML SYG IV PRN ×5 (05:03→21:39)
[2019-09-03] MEDS: PANTOPRAZOLE (EC) 40 MG TAB PO SCH ×2 (05:03→17:25)
[2019-09-03 08:00] VITALS: BP 114/77; PULSE 68; RESP 18
[2019-09-03] MEDS: LUBIPROSTONE 24 MCG CAP PO SCH (08:30)
[2019-09-03] MEDS: MESALAMINE (SR) 250 MG CAP PO SCH ×4 (08:30→21:14)
[2019-09-03] MEDS: SUCRALFATE 1 GM TAB PO SCH ×4 (08:30→21:14)
[2019-09-03] MEDS: POLYETHYLENE GLYCOL 17 GM PACKET GTB SCH (08:30)
[2019-09-03] MEDS: ENOXAPARIN 30 MG/0.3 ML SYG SC SCH (08:31)
[2019-09-03] MEDS: CHLORDIAZEPOXIDE/CLIDINIUM CAP PO SCH ×3 (08:33→17:32)
[2019-09-03] MEDS: ONDANSETRON 4 MG INJ IV PRN (11:17)
[2019-09-03 14:00] VITALS: BP 125/79; PULSE 81; RESP 18
[2019-09-03 20:00] VITALS: BP 110/76; PULSE 90; RESP 18
[2019-09-03] MEDS: ZOLPIDEM 5 MG TAB PO PRN (22:48)
[2019-09-04] MEDS: HYDROmorphONE 1 MG/ML SYG IV PRN ×4 (01:44→14:30)
[2019-09-04 02:00] VITALS: BP 112/50; PULSE 69; RESP 18
[2019-09-04] MEDS: PANTOPRAZOLE (EC) 40 MG TAB PO SCH (06:19)
[2019-09-04 08:00] VITALS: BP 111/72; PULSE 85; RESP 16
[2019-09-04] MEDS: MESALAMINE (SR) 250 MG CAP PO SCH ×2 (08:47→12:31)
[2019-09-04] MEDS: SUCRALFATE 1 GM TAB PO SCH ×2 (08:47→12:31)
[2019-09-04] MEDS: LUBIPROSTONE 24 MCG CAP PO SCH (08:47)
[2019-09-04] MEDS: POLYETHYLENE GLYCOL 17 GM PACKET GTB SCH (08:48)
[2019-09-04] MEDS: ENOXAPARIN 30 MG/0.3 ML SYG SC SCH (08:50)
[2019-09-04] MEDS: CHLORDIAZEPOXIDE/CLIDINIUM CAP PO SCH ×2 (08:55→12:31)
[2019-09-04] MEDS ORDERED: POLYETHYLENE GLYCOL 17 GM PACKET PO SCH (10:00)
[2019-09-04 14:00] VITALS: BP 140/89; PULSE 85; RESP 16
[2019-09-04] MEDS: ONDANSETRON 4 MG INJ IV PRN (14:30)
[2019-09-04] MEDS ORDERED: LUBIPROSTONE 24 MCG CAP PO SCH (21:00)
== END 2019-09-04 16:30 | disposition home or self-care (01) | DRG 392 ==
LOC: E/R 09:40 → 5EC 12:12
PROVIDERS: ADMIT Internal Medicine; ATTEND Internal Medicine
DX: K58.1 Irritable bowel syndrome with constipation (principal); K63.3 Ulcer of intestine
CPT/HCPCS: 36415; 80048; 80053; 82306; 82607; 83540; 83690; 85025; 85651; 86140; 93005; 96374; 96375; 96376; C9113; J1100; J1170; J1630; J1650; J1885; J2405; J3480; J7030